=== PATIENT | female | born 1935 | race Caucasian/White ===

== ENCOUNTER 2019-11-11 11:39 | Outpatient (RCR) | payer SELFPAY | END 2019-12-04 23:59 | disposition home or self-care (01) | LOC: CR 11:39 | PROVIDERS: Family Provider Family Medicine; PCP Family Medicine; Referring Provider Internal Medicine Cardiovascular Disease; Visit Provider Internal Medicine Cardiovascular Disease | DX: Z95.5 Presence of coronary angioplasty implant and graft (principal) ==

== ENCOUNTER 2019-11-11 13:30 | Outpatient (CLI) | payer MEDICARE, OTHER, SELFPAY ==
[2019-11-11 14:20] LABS: ABG PCO2 50.5 mmHg (35-45); ABG PH Result 7.43 (7.35-7.45); Arterial Blood Gas Hematocrit 49.2 % (37-47); Base Excess ABG 7.2 mmol/L (-2.0-2.0); Blood Gas Allen Test Pos; Blood Gas Sample Site Radial, right; Blood Gas Sample Type Arterial; Carboxyhemoglobin 0.6 %THgb (0.4-20.1); HCO3 ABG 33.3 mmol/L (22-26); HGB O2 Sat 92.9 % (95-100); Ionized Calcium Level - ABG 1.2 mmol/L (1.1-1.4); Methemoglobin 0.2 % (0.4-1.5); PO2 ABG 71.9 mmHg (80.0-100.0); Potassium Level - ABG 4.1 mmol/L (3.5-5.0)
[2019-11-11 14:26] LABS: Oxygen Device NC; Oxygen Saturation ABG 93.7
[2019-11-11 15:02] VITALS: O2SAT 88; O2SAT 92
== END 2019-11-11 13:31 | disposition home or self-care (01) ==
LOC: RAD 05-23 15:30
PROVIDERS: PCP Family Medicine; Visit Provider Internal Medicine Critical Care Medicine
DX: J96.92 Respiratory failure, unspecified with hypercapnia (principal)
CPT/HCPCS: 80051; 82810; 83986; 94060; 94726; 94729; J7611

== ENCOUNTER 2019-11-18 15:23 | Outpatient (CLI) | payer MEDICARE, OTHER, SELFPAY ==
--- NOTE | 2019-11-18 15:53 | CT_ITS ---
WS: [id number] CT CHEST TECHNIQUE: Noncontrast CT of the chest with coronal and sagittal reformatted images. CLINICAL INFORMATION: SHORTNESS OF BREATH COMPARISON: None. DLP: 996.[address] scans at [facility] use at least one of these dose optimization techniques: automat ed exposure control; mA and/or kV adjustment per patient size (includes targeted exams where dose is matched to clinical indication); or iterative reconstruction. FINDINGS: Moderate chronic emphysematous changes. No acute pulmonary infiltrates. No consolidation or pleural f luid. Noncalcified pulmonary nodule in the right upper lobe measuring 5.4 mm. Noncalcified pulmonary nodule in the right lower lobe posterior medially measuring 2 mm. A few additional tiny 1 to 2 mm pul monary nodules in the right upper lobe along the fissure and subpleural right lower lobe. Atelectasis in both lung bases. Additional noncalcified opacity in the left upper lobe abutting the mediastinum may be vascular measu ring 6 mm. Slightly enlarged heterogeneous thyroid. Moderate thoracic kyphosis. Anterior hypertrophic changes thoracic spine. Thyroid nodule measuring 8 mm. Cardiomegaly. Coronary calcification. No medi astinal or hilar lymphadenopathy. Dense mitral valve calcification. Prior cholecystectomy. CT/CT chest wo con [id number] IMPRESSION: 1. Noncalcified pulmonary nodule in the right upper lobe measuring 5.4 mm. Rec ommend 6 month follow-up. 2. A few additional tiny 1 to 2 mm intraparenchymal and subpleural nodules in the right lower lobe and right upper lobe near the fissure. 3. No acute pulmonary infiltrates. Bibasilar atelectasis. 4. 6 mm opacity in the left upper lobe adjacent to the mediastinum and brachio cephalic vein may be vascular. 5. No mediastinal or hilar lymphadenopathy. 6. Cardiomegaly with dense vascular calcification. 7. Prominent heterogeneous thyroid with a few small nodules. This can be follo wed up with ultrasound on an elective basis. 8. Prior cholecystectomy.
== END 2019-11-18 15:24 | disposition home or self-care (01) ==
LOC: RADWPI 15:29
PROVIDERS: Family Provider Family Medicine; PCP Family Medicine; Visit Provider Internal Medicine Critical Care Medicine
DX: J98.11 Atelectasis (principal); R06.02 Shortness of breath; R91.8 Other nonspecific abnormal finding of lung field; I51.7 Cardiomegaly; E04.2 Nontoxic multinodular goiter; Z90.49 Acquired absence of other specified parts of digestive tract
CPT/HCPCS: 71250

== ENCOUNTER 2019-12-07 13:43 | Outpatient (RCR) | payer SELFPAY | END 2020-01-02 23:59 | disposition home or self-care (01) | LOC: CR 13:43 | PROVIDERS: Family Provider Family Medicine; PCP Family Medicine; Referring Provider Internal Medicine Cardiovascular Disease; Visit Provider Internal Medicine Cardiovascular Disease | DX: Z95.5 Presence of coronary angioplasty implant and graft (principal) ==

== ENCOUNTER 2020-01-04 12:49 | Outpatient (RCR) | payer SELFPAY | END 2020-02-02 23:59 | disposition home or self-care (01) | LOC: CR 12:49 | PROVIDERS: Family Provider Family Medicine; PCP Family Medicine; Referring Provider Internal Medicine Cardiovascular Disease; Visit Provider Internal Medicine Cardiovascular Disease | DX: Z95.2 Presence of prosthetic heart valve (principal) ==

== ENCOUNTER 2020-04-04 14:21 | Outpatient (RCR) | payer SELFPAY | END 2020-05-03 23:59 | disposition home or self-care (01) | LOC: CR 14:21 | PROVIDERS: Family Provider Family Medicine; PCP Family Medicine; Referring Provider Internal Medicine Cardiovascular Disease; Visit Provider Internal Medicine Cardiovascular Disease | DX: Z95.5 Presence of coronary angioplasty implant and graft (principal) ==

== ENCOUNTER 2020-05-11 14:09 | Outpatient (CLI) | payer MEDICARE, OTHER, SELFPAY ==
--- NOTE | 2020-05-11 14:15 | USCV_ITS ---
Josr Mansi Age: 85 Gender: F : 1935 Exam Date: 05/11/2020 14:30 Ordering Phys: Anselmo Ramirez MD ([email or web address]) Technologist: Catarina Denson Exam Location: [facility] [place] Indication: HISTORY: Patient has history of varicose veins. PROCEDURES: Bilateral duplex Venous Insufficiency study of the Deep and Superficial systems was carried out according to normal protocol with the patient in supine positon for deep system and dependent position for the superficial system. FINDINGS: There is no evidence of bilateral deep vein thrombosis. No evidence of superficial thrombosis in the bilateral saphenous system. No evidence of reflux was noted in the bilateral deep venous system. No venous reflux noted in the bilateral greater saphenous vein. No venous reflux noted in the bilateral small saphenous vein. CONCLUSIONS No evidence of DVT in the above-mentioned identifiable veins. No significant venous reflux in the above-mentioned veins The venous diameter and the depth from the surface are as mentioned above Dr Justin Mccarthy MD [facility] (Electronically Signed) Final Date: 11 May 2020 18:27 S
--- NOTE | 2020-05-11 15:00 | USCV_ITS ---
Mansi Ovalles Age: 85 Gender: F : 1935 Exam Date: 05/11/2020 14:16 Ordering Phys: Anselmo Ramirez MD ([email or web address]) Technologist: Catarina Denson Exam Location: [facility] [place] Indication: sob BP: / HR: 74 Rhythm: Sinus Technical Quality: Adequate MEASUREMENTS (Male / Female) Normal Values 2D ECHO LV Diastolic Diameter PLAX 4.4 cm 4.2 - 5.9 / 3.9 - 5.3 cm LV Systolic Diameter PLAX 3.4 cm LV Chamber Size 3.0 cm IVS Diastolic Thickness 1.2 cm 0.6 - 1.0 / 0.6 - 0.9 cm IVS Systolic Thickness 1.8 cm LVPW Diastolic Thickness 2.0 cm 0.6 - 1.0 / 0.6 - 0.9 cm LVPW Systolic Thickness 2.5 cm RV Chamber Size 4.3 cm LVOT Diameter 2.0 cm LV Ejection Fraction 2D Teich 48.3 % LA Diameter 5.0 cm LA Width 4.7 cm LA Height 4.9 cm RA Width 3.1 cm RA Height 3.9 cm Aorta at Sinotubular Diameter 3.4 cm M-MODE LV Diastolic Diameter MM 5.6 cm 4.2 - 5.9 / 3.9 - 5.3 cm LV Systolic Diameter MM 3.3 cm LV Ejection Fraction MM Teich 72.1 % IVS Diastolic Thickness MM 1.1 cm 0.6 - 1.0 / 0.6 - 0.9 cm IVS Systolic Thickness MM 1.7 cm LVPW Diastolic Thickness MM 1.4 cm 0.6 - 1.0 / 0.6 - 0.9 cm LVPW Systolic Thickness MM 1.7 cm Aortic Annulus Diameter 3.4 cm LA Ao Ratio MM 1.5 MV E Point Septal Separation 1.8 cm DOPPLER AV Peak Velocity 241.0 cm/s LVOT Peak Velocity 120.0 cm/s AV Area Cont Eq vti 1.4 cm squared AV Area Cont Eq pk 1.6 cm squared MV Area PHT 3.7 cm squared Mitral E to A Ratio 8.3 MV E' Velocity 10.0 cm/s Mitral E to MV E' Ratio 14.6 Mitral E to LV E' Lateral Ratio 14.8 Mitral E to LV E' Septal Ratio 14.4 TR Peak Velocity 292.0 cm/s TR Peak Gradient 34.1 mmHg TR Mean Velocity 232.3 cm/s TR Mean Gradient 23.2 mmHg TR Velocity Time Integral 97.7 cm TV Peak E Velocity 69.0 cm/s Right Atrial Pressure 3.0 mmHg Pulmonary Artery Systolic Pressu 37.1 mmHg PV Peak Velocity 89.0 cm/s RV Acceleration Time 0.1 s RV Ejection Time 0.3 s RV AcT/ET 0.3 FINDINGS Left Ventricle Normal left ventricular cavity size. Normal left ventricular systolic function. Abnormal septal motion consistent with conduction abnormality. Left ventricular ejection fraction is estimated at 55 %. In the presence of atrial fibrillation diastolic function cannot be assessed accurately. Right Ventricle Normal right ventricular size. Moderate pulmonary hypertension, RVSP 37.1 mmHg. Right Atrium The right atrium is normal in size. Left Atrium The left atrium is normal in size. Mitral Valve Severely thickened mitral valve. Severe mitral annular calcification. Mild-moderate mitral valve regurgitation. Aortic Valve Mild aortic valve calcification. Moderate aortic valve stenosis, mean gradient 12.5 mmHg, JENNY 1.4 cm squared. No aortic valve regurgitation. Tricuspid Valve No tricuspid valve regurgitation. Pulmonic Valve Structurally normal pulmonic valve without significant stenosis. There is no pulmonic regurgitation. Pericardium Normal pericardium without effusion. Aorta Normal ascending aorta dimension. CONCLUSIONS 1-Normal left ventricular cavity size. Normal left ventricular systolic function. Abnormal septal motion consistent with conduction abnormality. Left ventricular ejection fraction is estimated at 55 %. In the presence of atrial fibrillation diastolic function cannot be assessed accurately. 2-Severely thickened mitral valve. Severe mitral annular calcification. Mild-moderate mitral valve regurgitation. 3-Mild aortic valve calcification. Moderate aortic valve stenosis, mean gradient 12.5 mmHg, JENNY 1.4 cm squared. No aortic valve regurgitation. 4-Normal right ventricular size. Moderate pulmonary hypertension, RVSP 37.1 mmHg. 5-There is no pericardial effusion. 6-Right atrial pressure is around 5 mm of mercury. 7-When compared to the prior echocardiogram dated 02/24/2019 there appeared to be mild aortic stenosis now otherwise no interval change Anselmo Ramirez MD (Electronically Signed) Final Date: 12 May 2020 17:14 S
== END 2020-05-11 14:10 | disposition home or self-care (01) ==
LOC: RAD 14:12
PROVIDERS: PCP Family Medicine; Visit Provider Internal Medicine Cardiovascular Disease
DX: R06.02 Shortness of breath (principal); I08.0 Rheumatic disorders of both mitral and aortic valves; I83.892 Varicose veins of left lower extremity with other complications; I27.20 Pulmonary hypertension, unspecified
CPT/HCPCS: 93306; 93970

== ENCOUNTER 2020-05-16 | Outpatient (RCR) | payer SELFPAY | END 2020-05-16 23:00 | disposition home or self-care (01) | LOC: CR | PROVIDERS: Family Provider Family Medicine; PCP Family Medicine; Referring Provider Internal Medicine Cardiovascular Disease; Visit Provider Internal Medicine Cardiovascular Disease | DX: Z95.5 Presence of coronary angioplasty implant and graft (principal) ==

== ENCOUNTER 2020-06-07 13:49 | Outpatient (RCR) | payer SELFPAY | END 2020-07-04 23:59 | disposition home or self-care (01) | LOC: CR 13:49 | PROVIDERS: Family Provider Family Medicine; PCP Family Medicine; Referring Provider Internal Medicine Cardiovascular Disease; Visit Provider Internal Medicine Cardiovascular Disease | DX: Z95.5 Presence of coronary angioplasty implant and graft (principal) ==

== ENCOUNTER 2020-07-05 14:40 | Outpatient (RCR) | payer SELFPAY | END 2020-08-03 23:59 | disposition home or self-care (01) | LOC: CR 14:40 | PROVIDERS: Family Provider Family Medicine; PCP Family Medicine; Referring Provider Internal Medicine Cardiovascular Disease; Visit Provider Internal Medicine Cardiovascular Disease | DX: Z95.5 Presence of coronary angioplasty implant and graft (principal) ==

== ENCOUNTER → 2020-08-01 11:00 | Outpatient (BNVA) | payer MEDICARE, OTHER, SELFPAY | PROVIDERS: Family Provider Family Medicine; PCP Family Medicine; Referring Provider Dermatology; Visit Provider Dermatology | DX: Z85.828 Personal history of other malignant neoplasm of skin (principal); D48.5 Neoplasm of uncertain behavior of skin; L57.0 Actinic keratosis; L82.1 Other seborrheic keratosis | CPT/HCPCS: 11102; 11103; 17004; 88304; 99203; 99204 ==

== ENCOUNTER → 2020-08-31 15:16 | Outpatient (BNVA) | payer MEDICARE, OTHER, SELFPAY | PROVIDERS: Family Provider Family Medicine; PCP Family Medicine; Visit Provider Dermatology | DX: D48.9 Neoplasm of uncertain behavior, unspecified (principal) | CPT/HCPCS: 88304 ==

== ENCOUNTER 2021-12-13 12:15 | Outpatient (CLI) | payer MEDICARE, OTHER, SELFPAY ==
--- NOTE | 2021-12-13 12:45 | USCV_ITS ---
Mansi Ovalles Age: 86 Gender: F : 1935 Exam Date: 12/13/2021 12:08 Ordering Phys: Anselmo Ramirez MD ([email or web address]) Technologist: Eddi Chaves RVSusie Exam Location: [place] Indication: pre-op clearance for RT first toe ingrown nail surgery. No DM. Never smoked. FINDINGS Normal resting ABIs bilaterally Normal resting TBI bilaterally PVR waveforms showing blunting of the dicrotic notch CONCLUSIONS Some features of arterial sclerosis, bilaterally No significant arterial obstruction, based on the above findings Dr Justin Mccarthy MD [facility] (Electronically Signed) Final Date: 25 December 2021 14:33 S
== END 2021-12-13 12:16 | disposition home or self-care (01) ==
LOC: RAD 12:21
PROVIDERS: PCP Family Medicine; Visit Provider Internal Medicine Cardiovascular Disease
DX: L60.0 Ingrowing nail (principal); I83.819 Varicose veins of unspecified lower extremity with pain
CPT/HCPCS: 93923

== ENCOUNTER → 2022-01-15 14:47 | Outpatient (BNVA) | payer MEDICARE, OTHER, SELFPAY | PROVIDERS: PCP Family Medicine; Visit Provider Internal Medicine Critical Care Medicine | DX: J96.12 Chronic respiratory failure with hypercapnia (principal); E66.2 Morbid (severe) obesity with alveolar hypoventilation; J98.4 Other disorders of lung; I10 Essential (primary) hypertension; K21.9 Gastro-esophageal reflux disease without esophagitis; J96.92 Respiratory failure, unspecified with hypercapnia | CPT/HCPCS: 99213 ==

== ENCOUNTER → 2022-03-26 13:01 | Outpatient (BNVA) | payer MEDICARE, OTHER, SELFPAY | PROVIDERS: PCP Family Medicine; Visit Provider Internal Medicine | DX: I11.0 Hypertensive heart disease with heart failure (principal); I50.30 Unspecified diastolic (congestive) heart failure; I25.10 Atherosclerotic heart disease of native coronary artery without angina pectoris; I48.91 Unspecified atrial fibrillation; I35.0 Nonrheumatic aortic (valve) stenosis | CPT/HCPCS: 99214 ==

== ENCOUNTER 2022-06-06 14:22 | Inpatient (IN) | payer MEDICARE, OTHER, SELFPAY ==
[2022-06-06 14:36] VITALS: BP 136/82; PULSE 108; RESP 18; TEMP 36.5; O2SAT 93; BMI 39.4
--- NOTE | 2022-06-06 14:51 | CTR_ITS ---
PROCEDURE INFORMATION: Exam: CT Head Without Contrast Exam date and time: 06/06/2022 4:26 PM Age: 87 years old Clinical indication: Visual disturbance; Additional info: Paresthesia TECHNIQUE: Imaging protocol: Computed tomography of the head without contrast. Radiation optimization: All CT scans at this facility use at least one of these dose optimization techniques: automated exposure control; mA and/or kV adjustment per patient size (includes targeted exams where dose is matched to clinical indication); or iterative reconstruction. COMPARISON: No relevant prior studies available. RADIATION DOSE METRICS: Total DLP (mGy-cm): 1123.58 FINDINGS: Brain: No hemorrhage. No edema. Moderate diffuse cerebral atrophy and mild sequela of chronic small vessel ischemic disease. No mass effect. Cerebral ventricles: No ventriculomegaly. Paranasal sinuses: Visualized sinuses are unremarkable. No fluid levels. Mastoid air cells: Visualized mastoid air cells are well aerated. Bones/joints: Unremarkable. No acute fracture. Soft tissues: Unremarkable. CT/CT head wo con* [id number] IMPRESSION: No acute intracranial abnormality.
--- NOTE | 2022-06-06 15:30 | ECG_ITS ---
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 Measurements Intervals [place] Rate: 100 P: [place]: QRS: -14 QRSD: 88 T: 5 QT: 372 QTc: 482 Interpretive Statements ATRIAL FIBRILLATION WITH RAPID VENTRICULAR RESPONSE LOW QRS VOLTAGE IN PRECORDIAL LEADS [QRS DEFLECTION < 1.0 mV IN CHEST LEADS] SEPTAL MYOCARDIAL INFARCTION , PROBABLY OLD [40+ ms Q WAVE IN V1/V2] Compared to ECG 02/28/2018 13:21:35 Ventricular premature complex(es) no longer present Myocardial infarct finding still present Electronically Signed On 06-06-2022 19:32:05 CDT by Lindsay Garcia M.D. [id number]
[2022-06-06 15:34] LABS: Basophils % 0.6 %; Eosinophils # 0.1 10^3/uL (0.0-0.8); Eosinophils % 1.9 %; Hematocrit 51.8 % (37.0-47.0); Hemoglobin 16.8 g/dL (11.5-15.3); Lymphocytes # 1.5 10^3/uL (0.8-4.8); Lymphocytes % 23.6 %; Mean Corpuscular HGB Conc 32.4 g/dL (30.0-36.0); Mean Corpuscular Hemoglobin 28.6 pg (28.0-34.0); Mean Corpuscular Volume 88.1 fl (81-99); Mean Platelet Volume 10.3 fL (7.4-10.4); Monocytes # 0.7 10^3/uL (0.2-0.9); Monocytes % 10.6 %; Neutrophils # 3.98 10^3/uL (1.8-7.7); Neutrophils % 62.7 %; Nucleated Red Blood Cells % 0 %; Platelet Count 187 10^3/cmm (130-400); Red Blood Count 5.88 10^6/uL (4.1-5.3); Red Cell Distribution Width 14.5 % (12.1-15.1); White Blood Count 6.4 10^3/uL (4.0-10.0)
[2022-06-06 15:50] LABS: Alanine Aminotransferase 18 U/L (0-33); Albumin Level 4.2 g/dL (3.5-5.2); Alkaline Phosphatase 105 IU/L (35-105); Anion Gap 13.8 (5-19); Aspartate Amino Transferase 24 U/L (0-32); Blood Urea Nitrogen 20 mg/dL (8-23); Calcium 9.6 mg/dL (8.5-10.5); Carbon Dioxide 33 mmol/L (22-29); Chloride 99 mmol/L (98-107); Globulin 2.8 g/dL (1.3-4.6); Glucose 103 mg/dL (65-115); Lipase 33 U/L (13-60); Osmolality Calculated 295 mOsm/kg (285-295); Potassium 4.8 mmol/L (3.5-5.1); Sodium 141 mmol/L (136-145); Total Bilirubin 0.5 mg/dL (0.15-1.2)
--- NOTE | 2022-06-06 16:01 | ED_ITS ---
HPI - General Adult General: Chief complaint: ER Hold Stated complaint: Weakness, vision loss in one eye Time Seen by Provider: 06/06/22 16:01 History of Present Illness: Ms. Ovalles is an 87-year-old lady with history of atrial fibrillation on reduced dose Eliquis, CAD, diastolic heart failure, restrictive lung disease who presents to the emergency department for concern over neurologic symptoms. She reports being at her baseline health earlier today and she had sudden onset approximately noon of a brown blob visual disturbance in her central sidhu of 1 eye. With this she had a tingling sensation in her right arm and discomfort in her shoulder. This lasted approximately 1 hour and has subsequently resolved with exception of still mild paresthesia and a feeling of impending doom. She reports history of 1 episode similar approximately 2 weeks ago however this was not as intense. Currently symptoms are mild. Denies other neurologic complaints. Denies frequent history of chest pain. No other specific changes in health, exacerbating, or alleviating factors identified. Location: right and upper extremity Severity: moderate Quality: other Relieving factors: none Exacerbating factors: none Associated symptoms: Reports other Review of Systems General: Reports: 10 or more systems reviewed and unremarkable except in HPI and below PFSH ED PFSH: Medical History (Updated 06/08/22 @ 00:02 by ) Acute non-ST elevation myocardial infarction (NSTEMI) Afib Aortic stenosis, mild Arm paresthesia, right ASHD (arteriosclerotic heart disease) Atrial fibrillation Cellulitis Chronic hypercapnic respiratory failure COPD (chronic obstructive pulmonary disease) Diastolic heart failure Well compensated continue medicine. Essential (primary) hypertension GERD (gastroesophageal reflux disease) History of nonmelanoma skin cancer Mild tricuspid valve regurgitation NSTEMI (non-ST elevated myocardial infarction) Obesity hypoventilation syndrome Positive cardiac stress test Respiratory failure with hypercapnia Respiratory failure with hypoxia Restrictive lung disease SOB (shortness of breath) TIA (transient ischemic attack) Transient vision disturbance Varicose veins of leg with pain Venous (peripheral) insufficiency Surgical History H/O hernia repair History of appendectomy History of cholecystectomy History of PTCA Stented coronary artery Family History Other Cancer Diabetes Social History Smoking and tobacco status: never smoked Second hand smoke exposure: No Smoking risk assessment/counseling performed?: No Alcohol intake: never Lives independently: Yes Household members: none Marital status: / Current occupational status: retired History of recent travel: No Current gender identity: Female Physical Exam Const: COMMON NORMALS: patient oriented x3 and alert GENERAL APPEARANCE: cooperative and well developed HENMT: COMMON NORMALS: normocephalic and atraumatic HEAD & SCALP: normocephalic and atraumatic THROAT: posterior oropharynx normal Eye: COMMON NORMALS: conjunctivae normal CONJUNCTIVA: Yes conjunctivae normal SCLERA: sclerae normal Neck/C-Spine: COMMON NORMALS: supple GENERAL: Yes trachea midline Resp: COMMON NORMALS: normal respiratory effort and clear to auscultation bilaterally EFFORT & INSPECTION: Yes able to speak in complete sentences AUSCULTATION: clear to auscultation bilaterally Cardio: COMMON NORMALS: regular rate and regular rhythm RATE: regular rate RHYTHM: regular rhythm GI: COMMON NORMALS: Soft to palpation PALPATION: Yes Soft to palpation and No Tenderness to palpation present (GI) PERCUSSION: normal to percussion Extremity: GENERAL: Yes normal exam except as noted and No edema Neuro: COMMON NORMALS: patient oriented x3, CN's II-XII intact bilaterally, moves all extremities, no focal motor deficits and no sensory deficits noted SENSORIUM/ORIENTATION: Yes alert and No Orientation impaired Psych: COMMON NORMALS: mental status grossly normal and Normal thought process present THOUGHT PROCESS: Normal thought process present Course ED course: - Patient was seen and evaluated by me at bedside - Patient placed on cardiac monitors, IV access obtained - Initial evaluation notable for exam as above, no focal neurodeficits. - Labs and xrays personally interpreted by me -Fluids given, aspirin given for elevated troponin at 2 hours - Labs notable for no acute laboratory abnormality to explain symptoms. Positive delta troponin. BNP elevated. - Imaging notable for no acute intracranial hemorrhage or mass. Chest x-ray without lobar consolidation or pneumothorax. - Upon serial reexamination after treatment the patient was somewhat - Based on patient history, evaluation, and testing as interpreted the most likely cause of the patient's condition is strokelike symptoms - The results of ED evaluation were discussed with the patient including plan for admission due to requirement for level of care not available if discharged to prevent significant worsening/deterioration. - Admitting service was contacted and Dr Bonds with the hospitalist service ting jordan to admit the patient - Patient was admitted without further deterioration or significant events. Note: Click bubbles or prepopulated sidhu in note writing are used for assistance with data collection and billing and are inherently more limited than narrative and other text portions of this note. Please use narrative for additional clinical history and defer to narrative/free test for any case of contradictory information. If information appears in only free text or click bubble it s hould be considered present or absent as reported. Please contact note proposal writer for clarifications of clinical information or contradictory information. MDM is a brief summary, contradictory or erroneous seeming information should be clarified and full note should be reviewed. Vital Signs: Vital signs: Vital Signs Temperature 98.2 F 06/07/22 12:00 Pulse Rate 69 06/07/22 12:00 Respiratory Rate 20 H 06/07/22 12:00 Blood Pressure 105/65 06/07/22 12:00 Pulse Oximetry 96 06/07/22 12:00 Oxygen Delivery Me thod 06/07/22 12:00 Oxygen Flow Rate 2 06/07/22 01:35 MDM - General Adult Medical Decision Making 87-year-old lady presenting with TIA/strokelike symptoms. No focal deficits on exam. Patient found to have positive delta troponin and admitted for further management. Medical Records I reviewed the patient's medical records. Lab Data I reviewed the patient's lab results. : 06/07/22 05:22 06/07/22 05:[address] 06/06/22 14:51 IMPRESSION: No acute intracranial abnormality. Chest X-Ray 06/06/22 16:37 IMPRESSION: Cardiomegaly with central pulmonary vascular congestion. Laboratory Results WBC 6.4 10^3/uL (4.0-10.0) 06/06/22 14:16 RBC 5.88 10^6/uL (4.1-5.3) H 06/06/22 14:16 Hgb 16.8 g/dL (11.5-15.3) H 06/06/22 14:16 Hct 51.8 % (37.0-47.0) H 06/06/22 14:16 MCV 88.1 fl (81-99) 06/06/22 14:16 MCH 28.6 pg (28.0-34.0) 06/06/22 14:16 MCHC 32.4 g/dL (30.0-36.0) 06/06/22 14:16 RDW 14.5 % (12.1-15.1) 06/06/22 14:16 Plt Count 187 10^3/cmm (130-400) 06/06/22 14:16 MPV 10.3 fL (7.4-10.4) 06/06/22 14:16 Neut % (Auto) 62.7 % 06/06/22 14:16 Lymph % (Auto) 23.6 % 06/06/22 14:16 [place] % (Auto) 10.6 % 06/06/22 14:16 Eos % (Auto) 1.9 % 06/06/22 14:16 Baso % (Auto) 0.6 % 06/06/22 14:16 Neut # (Auto) 3.98 10^3/uL (1.8-7.7) 06/06/22 14:16 Lymph # (Auto) 1.5 10^3/uL (0.8-4.8) 06/06/22 14:16 [place] # (Auto) 0.7 10^3/uL (0.2-0.9) 06/06/22 14:16 Eos # (Auto) 0.1 10^3/uL (0.0-0.8) 06/06/22 14:16 Baso # (Auto) 0.0 10^3/uL (0.0-0.1) 06/06/22 14:16 Nucleated RBC % (auto) 0 % 06/06/22 14:16 Nucleated RBCs # 0.0 /100WBC 06/06/22 14:16 Sodium 141 mmol/L (136-145) 06/06/22 14:16 Potassium 4.8 mmol/L (3.5-5.1) 06/06/22 14:16 Chloride 99 mmol/L (98-107) 06/06/22 14:16 Carbon Dioxide 33 mmol/L (22-29) H 06/06/22 14:16 Anion Gap 13.8 (5-19) 06/06/22 14:16 BUN 20 mg/dL (8-23) 06/06/22 14:16 Creatinine 0.9 mg/dL (0.5-0.9) 06/06/22 14:16 GFR Calculation Not Reportable 06/06/22 14:16 Glucose 103 mg/dL (65-115) 06/06/22 14:16 Calculated Osmolality 295 mOsm/kg (285-295) 06/06/22 14:16 Calcium 9.6 mg/dL (8.5-10.5) 06/06/22 14:16 Magnesium 2.0 mg/dL (1.7-2.3) 06/06/22 14:16 Total Bilirubin 0.5 mg/dL (0.15-1.2) 06/06/22 14:16 AST 24 U/L (0-32) 06/06/22 14:16 ALT 18 U/L (0-33) 06/06/22 14:16 Alkaline Phosphatase 105 IU/L (35-105) 06/06/22 14:16 Troponin T Baseline 160 ng/L (0-10) H* 06/06/22 14:16 Troponin T 120 Minute 173.5 ng/L (0-10) H 06/06/22 16:38 Delta Troponin T 13.5 ABS# (0-10) H* 06/06/22 16:38 NT-Pro-B Natriuret Pep 1375 pg/mL (0-450) H 06/06/22 14:16 Total Protein 7.0 g/dL (6.6-8.7) 06/06/22 14:16 Albumin 4.2 g/dL (3.5-5.2) 06/06/22 14:16 Globulin 2.8 g/dL (1.3-4.6) 06/06/22 14:16 Lipase 33 U/L (13-60) 06/06/22 14:16 Critical Care Time Critical Care Time: Critical Care Time: Yes Total Critical Care Time: 35 Attestation: The high probability of a clinically significant, sudden or life threatening deterioration of the patient's neuro/cardiovascular system(s) required my full and direct attention, intervention and personal management. The critical care time is as shown. This time is in addition to time spent performing any reported procedures but includes the following: [x] Data and vital sign review and interpretation [x] Patient assessment, examination and intervention [x] Documentation [x] Medication orders and management Discharge Plan Discharge Patient Disposition: Admitted As Inpatient Admit Provider: Tl Bonds Clinical Impression: Acute non-ST elevation myocardial infarction (NSTEMI), Arm paresthesia, right, Transient vision disturbance Condition: Stable Discharge Diet: Cardiac Coding Level of Care Code ED Resolution Expert for Chg Fwd Exam Comprehensive
[2022-06-06 16:13] LABS: Troponin(5th) Baseline 160 ng/L (0-10)
--- NOTE | 2022-06-06 16:37 | XRR_ITS ---
PROCEDURE INFORMATION: Exam: XR Chest Exam date and time: 06/06/2022 4:53 PM Age: 87 years old Clinical indication: Angina; Additional info: Arm paresthesias, elevated troponin, atypical chest pain TECHNIQUE: Imaging protocol: Radiologic exam of the chest. Views: 1 view. COMPARISON: CT chest con [id number] 11/18/2019 4:03 PM FINDINGS: Lungs: No consolidation. Pleural spaces: No pleural effusion. No pneumothorax. Heart/Mediastinum: Cardiomegaly with central pulmonary vascular congestion. Bones/joints: Visualized osseous structures are intact. XR/XR chest 1V portable [id number] IMPRESSION: Cardiomegaly with central pulmonary vascular congestion.
--- NOTE | 2022-06-06 16:52 | ECG_ITS ---
[facility] Test Date: 2022-06-06 Pat Name: Mansi Ovalles Department: Room: Gender: Female Clinical Administrator: : 1935 Requested By: Kiko Granados Order Number: [id number] Jovanni MD: Lindsay Garcia M.D. Measurements Intervals [place] Rate: 96 P: [place]: QRS: 202 QRSD: 80 T: 189 QT: 334 QTc: 422 Interpretive Statements ATRIAL FIBRILLATION POSSIBLE RIGHT VENTRICULAR HYPERTROPHY [SOME/ALL OF: PROMINENT R IN V1, LATE TRANSITION, RAD, [place], SSS] ANTEROLATERAL MYOCARDIAL INFARCTION , OF INDETERMINATE AGE [40+ ms Q WAVE IN I/aVL/V3-V6] Compared to ECG 06/06/2022 15:30:02 No significant changes Electronically Signed On 06-06-2022 19:44:07 CDT by Lindsay Garcia M.D. [id number]
[2022-06-06 16:58] VITALS: BP 112/86; PULSE 99; RESP 18; O2SAT 91
[2022-06-06] MEDS: sodium chloride 0.9% 1,000 ML 999 ML IV (17:05)
[2022-06-06 17:18] LABS: Troponin 5 2HR 173.5 ng/L (0-10)
[2022-06-06 17:19] LABS: Troponin 5 2HR Delta 13.5 ABS# (0-10)
[2022-06-06 17:45] LABS: NT Pro B Type Natriuretic Pept 1375 pg/mL (0-450)
[2022-06-06] MEDS: aspirin 81 mg Chew Tablet 324 MG PO (17:53)
[2022-06-06 17:55] VITALS: BP 142/75; PULSE 107; RESP 20; O2SAT 91
--- NOTE | 2022-06-06 19:16 | PM.HP ---
Providers/Chief Complaint Primary Care Provider: Chung Curry MD Chief Complaint: Weakness, vision loss in one eye History of Present Illness Mansi Ovalles is a 87 year old female with PMH of CAD, S/P PCI, A.fib , on Eliquis , HTN , Mild to mod MR, Mild , HFpEF , Varicose veins of leg,chronic hypercapnic R/F , OHS , came in with c/o Acute onset of blurred vision in rt eye which lasted transiently was accompanied by tingling sensation in the rt hand and rt shoulder discomfort, she denied any chest pain, palpitation, dizziness,headache,lightheadedness,weakness in any body part,nausea, vomiting. She reports a similar episode 2 weeks back which lasted transiently.When I interacted with the patient she denied had no neurological deficit. Upon arrival in the ER she was worked up for above mention complain. Pertinent Imaging studies: C.T Head without contrast : No acute Intracranial findings EKG: A.fib Pertinent Labs : WBC : 6.4 , H& H : 16/51 , PLT : 187 ,Na: 141, K: 4.8 BUN/SCR : 20/0.9 HCO3: 33, Troponin: 160-173 , Pro BNP: 1375 Review of Systems General: Reports: 10 or more systems reviewed and unremarkable except in HPI and below Card: Denies: palpitations, edema, swelling of feet/ankles, dyspnea on exertion, orthopnea or leg pain with exertion Resp: Denies: dyspnea, productive cough, wheezing or pain on inspiration GI: Denies: abdominal pain, nausea, vomiting, diarrhea or constipation : Denies: flank pain Musc: Denies: back pain, extremity pain or extremity swelling Neuro: Denies: headache(s), difficulty walking or confusion Medications/Allergies Home Medications Medication Instructions Recorded Confirmed Last Taken Type cholecalciferol (vitamin D3) 10 400 unit PO DAILY 10/10/20 03/26/22 Unknown History mcg (400 unit) capsule citalopram 10 mg tablet 10 mg PO DAILY 10/10/20 03/26/22 Unknown History garlic 1,000 mg capsule 1,000 mg PO DAILY 10/10/20 03/26/22 Unknown History krill wvn-woixm-3-dha-epa 300 1 cap PO DAILY 10/10/20 03/26/22 Unknown History mg-90 mg (27 mg-45 mg) capsule magnesium oxide 500 mg capsule 500 mg PO DAILY 10/10/20 03/26/22 Unknown History red yeast rice 600 mg capsule 600 mg PO DAILY 10/10/20 03/26/22 Unknown History zinc 50 mg tablet 50 mg PO DAILY 10/10/20 03/26/22 Unknown History apixaban 2.5 mg tablet (Eliquis) 2.5 mg PO BID #180 tabs 01/31/21 01/15/22 Unknown Rx fluticasone propionate 50 1 spray intranasal DAILY 05/09/21 03/26/22 Unknown History mcg/actuation nasal spray,suspension (Flonase Allergy Relief) metoprolol succinate 25 mg 12.5 mg PO .at bedtime #45 tabs 05/09/21 03/26/22 Unknown Rx tablet,extended release 24 hr potassium chloride 20 mEq 40 meq PO DAILY #180 tabs 08/28/21 03/26/22 Unknown Rx tablet,extended release furosemide 80 mg tablet See Rx Instructions .Route 09/19/21 03/26/22 Unknown Rx .COMPLEX #180 tabs diltiazem HCl 180 mg 180 mg PO QAM #90 caps 12/04/21 03/26/22 Unknown Rx capsule,extended release 24 hr pantoprazole 40 mg tablet,delayed 40 mg PO DAILY #90 tabs 03/26/22 03/26/22 Unknown Rx release (Protonix) Allergies Allergy/AdvReac Type Severity Reaction Status Date / Time Penicillins Allergy Unknown Verified 03/26/22 13:11 PFSH Acute PFSH: Medical History (Updated 06/06/22 @ 19:20 by Tl Bonds MD) Afib Aortic stenosis, mild ASHD (arteriosclerotic heart disease) Cellulitis COPD (chronic obstructive pulmonary disease) Diastolic heart failure Well compensated continue medicine. Essential (primary) hypertension GERD (gastroesophageal reflux disease) History of nonmelanoma skin cancer Mild tricuspid valve regurgitation Positive cardiac stress test Respiratory failure with hypercapnia Respiratory failure with hypoxia SOB (shortness of breath) Varicose veins of leg with pain Venous (peripheral) insufficiency Surgical History H/O hernia repair History of appendectomy History of cholecystectomy History of PTCA Stented coronary artery Family History Other Cancer Diabetes Social History Smoking and tobacco status: never smoked Second hand smoke exposure: No Smoking risk assessment/counseling performed?: No Alcohol intake: never Lives independently: Yes Household members: none Marital status: / Current occupational status: retired History of recent travel: No Current gender identity: Female Vitals/I&O/Wt Last Vital Signs Temp 97.7 F 06/06/22 14:36 Pulse 107 H 06/06/22 17:55 Resp 20 H 06/06/22 17:55 BP 142/75 06/06/22 17:55 Pulse Ox 91 06/06/22 17:55 O2 Del Method 06/06/22 17:55 06/06/22 06/06/22 06/06/22 06:59 14:59 22:59 Intake Total 1000 / 1000 Balance 1000 / 1000 Weight last 48 hrs Weight 104.326 kg Physical Exam Const: COMMON NORMALS: patient oriented x3 HENMT: COMMON NORMALS: normocephalic and atraumatic HEAD & SCALP: normocephalic and atraumatic Chest: CHEST: Yes Symmetrical chest wall rise Resp: COMMON NORMALS: normal respiratory effort, No retractions and clear to auscultation bilaterally Cardio: COMMON NORMALS: Peripheral pulses 2+ throughout PERIPHERAL PULSES: Peripheral pulses 2+ throughout OTHER: Irregularly irregular rhythm, S1-S2 variable intensity, pansystolic murmur in mitral area, Ejection systolic murmur aortic area GI: COMMON NORMALS: Normal to inspection, nondistended, normoactive bowel sounds present, Soft to palpation, non-tender, No hepatosplenomegaly present and no masses AUSCULTATION: Yes normoactive bowel sounds PALPATION: Yes Soft to palpation and Yes No hepatosplenomegaly present RECTAL EXAM: deferred Neuro: COMMON NORMALS: patient oriented x3 Data : 06/06/22 14:16 06/06/22 14:16 A&P Assessment and plan (1) TIA (transient ischemic attack): Status: Acute (2) Diastolic heart failure: Status: Acute (3) Obesity hypoventilation syndrome: Status: Acute (4) Chronic hypercapnic respiratory failure: Status: Acute (5) Restrictive lung disease: Status: Acute (6) NSTEMI (non-ST elevated myocardial infarction): Status: Acute (7) Atrial fibrillation: Status: Acute (8) ASHD (arteriosclerotic heart disease): Status: Acute Plan 87 year old female with PMH of CAD, S/P stent , A.fib , on Eliquis , HTN , Mild to mod MR, Mild , HFpEF , Varicose veins of leg,chronic hypercapnic R/F , OHS , came in with c/o Acute onset of blurred vision in rt eye which lasted transiently was accompanied by tingling sensation in the rt hand and rt shoulder discomfort, she denied any chest pain, palpitation, dizziness,headache,lightheadedness,weakness in any body part,nausea, vomiting. She reports a similar episode 2 weeks back which lasted transiently.When I interacted with the patient she denied had no neurological deficit. Assessment : TIA NSTEMI likely type II patient deny any chest pain,or SOB on exertion ( angina equivalent ) HTN CAD S/P Stent Mild to mod MR Mild HFpEF Varicose veins of leg, Chronic hypercapnic R/F OHS Plan Follow 2D Echo Carotid Doppler Troponin trend Permissive HTN For next 24 hRS Aspirin , statin Will resume Eliquis on discharge Continue Diltiazem From Am Continue Lasix Use Trilogy ventilator at home for OHS Cardiology on Board Will consult Neurology in am Code Status : Full Code DVT PPX: ON SCD Attestations Medical Necessity Statement*: Patient needs to be in hospital for the management of TIA. Anticipated LOS Greater then 2 midnights. Time Spent in Patient Care: Greater than 35 minutes (>than 50% of time spent in counselling and/or direct pt care on unit). Coding Level of Care Code Acute [employer] [place] [employer] for [facility] Fwd Exam Detailed Diagnoses TIA (transient ischemic attack) G45.9 Diastolic heart failure I50.30 Obesity hypoventilation syndrome E66.2 Chronic hypercapnic respiratory failure J96.12 Restrictive lung disease J98.4 NSTEMI (non-ST elevated myocardial infarction) I21.4 Atrial fibrillation I48.91 ASHD (arteriosclerotic heart disease) I25.10
--- NOTE | 2022-06-06 19:22 | USCV_ITS ---
Josr Mansi Age: 87 Gender: F : 1935 Exam Date: 06/07/2022 00:08 Ordering Phys: Tl Bonds MD Technologist: LINDA Exam Location: [facility] [place] Indication: TIA today -- RIGHT hemiparesis with LEFT visual disturbances BP: 120 / 82 HR: 76 Rhythm: Atrial fibrillation Technical Quality: Suboptimal MEASUREMENTS (Male / Female) Normal Values 2D ECHO LV Diastolic Diameter PLAX 4.1 cm 4.2 - 5.9 / 3.9 - 5.3 cm LV Systolic Diameter PLAX 2.7 cm IVS Diastolic Thickness 1.6 cm 0.6 - 1.0 / 0.6 - 0.9 cm IVS Systolic Thickness 1.8 cm LVPW Diastolic Thickness 1.5 cm 0.6 - 1.0 / 0.6 - 0.9 cm LVPW Systolic Thickness 2.3 cm LVOT Diameter 2.1 cm LV Ejection Fraction 2D Teich 63.0 % LV Ejection Fraction MOD 2C 73.1 % LV Ejection Fraction 2C AL 73.4 % LA Diameter 6.4 cm LA Width 6.0 cm LA Height 6.7 cm RA Width 4.3 cm RA Height 6.5 cm Aorta at Sinotubular Diameter 3.2 cm IVC Diameter 1.3 cm M-MODE Aortic Annulus Diameter 3.1 cm LA Ao Ratio MM 2.0 MV E Point Septal Separation 0.4 cm DOPPLER AV Peak Velocity 374.0 cm/s LVOT Peak Velocity 84.0 cm/s AV Area Cont Eq vti 0.9 cm squared AV Area Cont Eq pk 0.8 cm squared MV Area PHT 5.1 cm squared MV E' Velocity 104.0 cm/s Mitral E to MV E' Ratio 17.4 Mitral E to LV E' Lateral Ratio 19.6 Mitral E to LV E' Septal Ratio 15.6 TR Peak Velocity 258.3 cm/s TR Peak Gradient 26.7 mmHg TV Peak E Velocity 66.0 cm/s Right Atrial Pressure 10.0 mmHg Pulmonary Artery Systolic Pressu 36.7 mmHg PV Peak Velocity 82.0 cm/s RV Acceleration Time 0.1 s RV Ejection Time 0.3 s RV AcT/ET 0.2 FINDINGS Left Ventricle Normal left ventricular size, systolic function and wall thickness, with no regional wall motion abnormalities. Rhythm precludes evaluation of diastolic function. Left ventricular ejection fraction is estimated at 65 %. Right Ventricle Mildly increased right ventricular size. Normal right ventricular systolic function. Mild pulmonary hypertension, RVSP 36.7 mmHg. Right Atrium Moderately increased right atrial size. Left Atrium Moderately increased left atrial size. Mitral Valve Structurally normal mitral valve. Mitral annular calcification. Severe mitral valve regurgitation. Aortic Valve Structurally normal trileaflet aortic valve. Moderate aortic valve calcification. Moderate aortic valve stenosis, mean gradient 25.1 mmHg, JENNY 0.93 cm squared. Trace to mild aortic valve regurgitation. Tricuspid Valve Structurally normal tricuspid valve. Moderate tricuspid valve regurgitation. Pulmonic Valve Pulmonic valve not well visualized. Mild pulmonary valve regurgitation. Pericardium Normal pericardium without effusion. Aorta Normal ascending aorta dimension. IVC Inferior vena cava not visualized. CONCLUSIONS Normal left ventricular size, systolic function and wall thickness, with no regional wall motion abnormalities. Rhythm precludes evaluation of diastolic function. Left ventricular ejection fraction is estimated at 65 %. Mildly increased right ventricular size. Normal right ventricular systolic function. Mild pulmonary hypertension, RVSP 36.7 mmHg. Moderately increased right atrial size. Moderately increased left atrial size. Structurally normal mitral valve. Mitral annular calcification. Severe mitral valve regurgitation. Structurally normal trileaflet aortic valve. Moderate aortic valve calcification. Moderate aortic valve stenosis, mean gradient 25.1 mmHg, JENNY 0.93 cm squared. Trace to mild aortic valve regurgitation. Structurally normal tricuspid valve. Moderate tricuspid valve regurgitation. Dr. Edgard Arredondo MD (Electronically Signed) Final Date: 07 June 2022 09:30 S
--- NOTE | 2022-06-06 19:22 | USCV_ITS ---
Josr Mansi Age: 87 Gender: F : 1935 Exam Date: 06/06/2022 23:40 Ordering Phys: Tl Bonds MD Technologist: LINDA [place]am [place] [facility] [place]ication: TIA today -- RIGHT hemiparesis with LEFT visual disturbances. No DM, Non-smoker Risk Factors: TIA today -- RIGHT hemiparesis with LEFT visual disturbances. No DM, Non-smoker Previous Vascular Surgery: None Right Brachial BP: / Left Brachial BP: / Right Left Velocity (cm/s) Spectral Plaque Velocity (cm/s) Spectral Plaque Syst/Diast Broadening Syst/Diast Broadening 51.80/ 14.30 Min None Prox CCA 55.90 / 13.80 Min None 34.20/ 9.10 Min None Mid CCA 38.10 / 11.20 Min None 34.70/ 6.90 Min None Distal CCA 40.80 / 12.50 Min None 21.40/ 7.20 Min Homo Prox ICA 31.60 / 9.90 Min Homo 33.80/ 10.90 Min Homo Mid ICA 69.00 / 21.70 Min Homo 66.40/ 23.70 Min Homo Distal ICA 72.30 / 21.00 Min Homo 56.10 Min Homo ECA 52.60 Min Homo 1.28 ICA/CCA 1.29 Not Vertebral Antegrade Visualized 21.00/ 8.50 cm/s 31.60/ 11.80 cm/s Tri Subclavian Tri 44.70 56.50 FINDINGS Comparison: none available. No significant elevation of systolic or diastolic velocities. Waveforms are normal. Minimal amount of calcified plaque or intimal thickening identified. Right vertebral artery is not visualized. CONCLUSIONS Bilateral ICA stenosis less than 50%. Right vertebral artery not visualized. Dr. Helen Gutierrez DO (Electronically Signed) Final Date: 07 June 2022 07:59 S
--- NOTE | 2022-06-06 19:38 | PC.NURSE ---
Report from MARY Zavaleta. Pt sitting on side of bed. Just returned from bathroom. NAD. Denies needs at this time. Updated on plan of care. Questions addressed.
[2022-06-06 19:40] VITALS: BP 117/73; RESP 20; O2SAT 92
[2022-06-06 22:30] VITALS: BP 112/72; PULSE 92; RESP 18; O2SAT 94
[2022-06-06 23:30] VITALS: BP 110/70; PULSE 91; RESP 16; O2SAT 91
[2022-06-07] VITALS (8 sets, daily range): BP systolic 94–132; BP diastolic 65–86; PULSE 69–91; RESP 16–20; TEMP 36.4–36.8; O2SAT 91–98
[2022-06-07 05:58] LABS: Basophils % 0.7 %; Eosinophils # 0.2 10^3/uL (0.0-0.8); Eosinophils % 3.1 %; Hemoglobin 14.6 g/dL (11.5-15.3); Lymphocytes # 1.6 10^3/uL (0.8-4.8); Lymphocytes % 28.6 %; Mean Corpuscular HGB Conc 31.7 g/dL (30.0-36.0); Mean Corpuscular Hemoglobin 28.6 pg (28.0-34.0); Mean Platelet Volume 10.4 fL (7.4-10.4); Monocytes # 0.7 10^3/uL (0.2-0.9); Monocytes % 12.4 %; Neutrophils # 3.14 10^3/uL (1.8-7.7); Neutrophils % 54.9 %; Nucleated Red Blood Cells % 0 %; Platelet Count 157 10^3/cmm (130-400); Red Blood Count 5.11 10^6/uL (4.1-5.3); Red Cell Distribution Width 14.4 % (12.1-15.1); White Blood Count 5.7 10^3/uL (4.0-10.0)
[2022-06-07 06:09] LABS: INR 1.07 (0.8-1.2)
[2022-06-07 06:26] LABS: Alanine Aminotransferase 15 U/L (0-33); Albumin Level 3.3 g/dL (3.5-5.2); Alkaline Phosphatase 79 IU/L (35-105); Anion Gap 11.3 (5-19); Aspartate Amino Transferase 22 U/L (0-32); Blood Urea Nitrogen 20 mg/dL (8-23); Calcium 8.7 mg/dL (8.5-10.5); Carbon Dioxide 30 mmol/L (22-29); Chloride 103 mmol/L (98-107); Chol HDL Ratio 5.08 mg/dL (0.0-4.40); Cholesterol 203 mg/dL (0-200); Globulin 2.3 g/dL (1.3-4.6); Glucose 105 mg/dL (65-115); HDL Cholesterol 40 mg/dL (60-100); LDL Cholesterol Calculated 142 mg/dL (50-129); LDL HDL Ratio 3.55 RATIO (0.00-3.22); Osmolality Calculated 293 mOsm/kg (285-295); Potassium 4.3 mmol/L (3.5-5.1); Sodium 140 mmol/L (136-145); Total Bilirubin 0.6 mg/dL (0.15-1.2); Total Protein 5.6 g/dL (6.6-8.7); Triglycerides 103 mg/dL (0-150)
[2022-06-07 07:06] LABS: Folate Level > 20.0 ng/mL (4.8-37.3); Vitamin B12 507 pg/mL (232-1245)
--- NOTE | 2022-06-07 08:28 | PM.CONSULT ---
Providers/Reason For Consult Consulting Physician/Specialty*: Julius Saab MD/Cardiology Reason for Consult*: Mitral regurgitation Requesting Physician: Dr Bonds Attending Physician: Tl Bonds MD Primary Care Provider: Chung Curry MD History of Present Illness History of Present Illness Mansi Ovalles is a 87 year old female with past medical history of CAD, atrial fibrillation on anticoagulation with Eliquis, aortic stenosis presented to the hospital with blurred vision and right eye and tingling sensation in right hand and shoulder. These were transient. Symptoms resolved. She had similar episode in the past. Cardiology was consulted as patient's troponins went up from 160-175. Echocardiogram shows normal LV systolic function. Has severe mitral regurgitation. Also was found to have moderate to severe aortic stenosis. Patient denies any chest pain. Review of Systems General: Reports: 10 or more systems reviewed and unremarkable except in HPI and below Card: Denies: palpitations, edema, swelling of feet/ankles, dyspnea on exertion, orthopnea or leg pain with exertion Resp: Denies: dyspnea, productive cough, wheezing or pain on inspiration GI: Denies: abdominal pain, nausea, vomiting, diarrhea or constipation : Denies: flank pain Musc: Denies: back pain, extremity pain or extremity swelling Neuro: Denies: headache(s), difficulty walking or confusion Medications/Allergies Home Medications Medication Instructions Recorded Confirmed Last Taken Type cholecalciferol (vitamin D3) 10 400 unit PO DAILY 10/10/20 06/07/22 06/06/22 09:00 History mcg (400 unit) capsule citalopram 10 mg tablet 10 mg PO DAILY 10/10/20 06/07/22 06/06/22 09:00 History garlic 1,000 mg capsule 1,000 mg PO DAILY 10/10/20 06/07/22 06/06/22 09:00 History krill yru-engjz-8-dha-epa 300 1 cap PO DAILY 10/10/20 06/07/22 06/06/22 09:00 History mg-90 mg (27 mg-45 mg) capsule magnesium oxide 500 mg capsule 500 mg PO DAILY 10/10/20 06/07/22 06/06/22 09:00 History red yeast rice 600 mg capsule 600 mg PO DAILY 10/10/20 06/07/22 06/06/22 09:00 History zinc 50 mg tablet 50 mg PO DAILY 10/10/20 06/07/22 06/06/22 09:00 History apixaban 2.5 mg tablet (Eliquis) 2.5 mg PO BID #180 tabs 01/31/21 06/07/22 06/06/22 09:00 Rx fluticasone propionate 50 1 spray intranasal DAILY 05/09/21 06/07/22 06/06/22 09:00 History mcg/actuation nasal spray,suspension (Flonase Allergy Relief) potassium chloride 20 mEq 40 meq PO DAILY #180 tabs 08/28/21 06/07/22 06/06/22 09:00 Rx tablet,extended release furosemide 80 mg tablet See Rx Instructions .Route 09/19/21 06/07/22 06/06/22 09:00 Rx .COMPLEX #180 tabs pantoprazole 40 mg tablet,delayed 40 mg PO DAILY #90 tabs 03/26/22 06/07/22 06/06/22 09:00 Rx release (Protonix) aspirin 81 mg tablet,delayed 81 mg PO DAILY 30 days #30 tabs 06/07/22 Unknown Rx release atorvastatin 40 mg tablet 40 mg PO DAILY 30 days #30 tabs 06/07/22 Unknown Rx diltiazem HCl 180 mg 120 mg PO QAM 06/07/22 06/07/22 06/06/22 09:00 History capsule,extended release 24 hr metoprolol succinate 25 mg 12.5 mg PO .at bedtime #45 tabs 06/18/22 Unknown Rx tablet,extended release 24 hr Allergies Allergy/AdvReac Type Severity Reaction Status Date / Time Penicillins Allergy Unknown Verified 03/26/22 13:11 PFSH Acute PFSH: Medical History (Updated 06/19/22 @ 12:38 by Julius Saab M.D) Acute non-ST elevation myocardial infarction (NSTEMI) Afib Aortic stenosis, mild Arm paresthesia, right ASHD (arteriosclerotic heart disease) Atrial fibrillation Cellulitis Chronic hypercapnic respiratory failure COPD (chronic obstructive pulmonary disease) Diastolic heart failure Well compensated continue medicine. Essential (primary) hypertension GERD (gastroesophageal reflux disease) History of nonmelanoma skin cancer Mild tricuspid valve regurgitation NSTEMI (non-ST elevated myocardial infarction) Obesity hypoventilation syndrome Positive cardiac stress test Respiratory failure with hypercapnia Respiratory failure with hypoxia Restrictive lung disease SOB (shortness of breath) TIA (transient ischemic attack) Transient vision disturbance Varicose veins of leg with pain Venous (peripheral) insufficiency Surgical History H/O hernia repair History of appendectomy History of cholecystectomy History of PTCA Stented coronary artery Family History Other Cancer Diabetes Social History Smoking and tobacco status: never smoked Second hand smoke exposure: No Smoking risk assessment/counseling performed?: No Alcohol intake: never Lives independently: Yes Household members: none Marital status: / Current occupational status: retired History of recent travel: No Current gender identity: Female Vitals/I&O/Wt Last Vital Signs Temp 97.6 F 06/07/22 07:52 Pulse 87 06/07/22 07:52 Resp 18 06/07/22 07:52 BP 132/86 06/07/22 07:52 Pulse Ox 95 06/07/22 07:52 O2 Del Method 06/07/22 07:52 O2 Flow Rate 2 06/07/22 01:35 06/06/22 06/07/22 06/07/22 22:59 06:59 14:59 Intake Total 1000 / 1000 290 / 1290 Balance 1000 / 1000 290 / 1290 Weight last 48 hrs Weight 230 lb Physical Exam Narrative: GENERAL: Patient is alert, awake and oriented x3. [] NECK: No jugular vein distension. [] HEENT: No cyanosis. No icterus. No pallor. [] HEART: Regular S1 and S2. Grade 3/6 systolic murmur LUNGS: Clear to auscultate bilaterally. [] ABDOMEN: Soft, nontender and nondistended. Positive bowel sounds. No guarding, rebound or tenderness. [] CENTRAL NERVOUS SYSTEM: Grossly nonfocal. [] EXTREMITIES: Lower extremities with 1+ edema bilaterally. Pulses palpable in the lower extremities, both dorsalis pedis and posterior tibial. [] Data : 06/07/22 05:22 06/07/22 05:22 A&P Assessment and plan (1) Aortic stenosis: Status: Acute (2) Afib: Status: Acute (3) SOB (shortness of breath): Status: Acute (4) Mitral regurgitation: Status: Acute (5) ASHD (arteriosclerotic heart disease): Status: Acute (6) Troponin level elevated: Status: Acute Plan Patient's troponin elevation is likely secondary to demand ischemia. No chest pain. Her EF is normal. We will medically manage it. As outpatient can consider stress test. Dyspnea on exertion and shortness of breath related to severe mitral regurgitation. I discussed different options with her. She says she is not sure if she would want to get invasive procedure for it. We will discuss as outpatient. Continue current medications. Thank you for involving us with care of this patient. We will follow as outpatient. Please call with questions Consult Attestations Medical Necessity Statement: Care expected to cross 2 midnights Coding Level of Care Code Acute [employer] for Rachelle Jarrett Diagnoses Aortic stenosis I35.0 Afib I48.91 SOB (shortness of breath) R06.02 Mitral regurgitation I34.0 ASHD (arteriosclerotic heart disease) I25.10 Troponin level elevated R77.8
[2022-06-07] MEDS: citalopram 20 mg Tablet 10 MG PO (09:42)
[2022-06-07] MEDS: atorvastatin 40 mg Tablet PO (09:42)
[2022-06-07] MEDS: pantoprazole DR 40 mg Tablet PO (09:42)
[2022-06-07] MEDS: aspirin 81 mg EC Tablet PO (09:42)
[2022-06-07] MEDS: FUROsemide 40 mg Tablet PO (10:17)
[2022-06-07] MEDS: dilTIAZem 60 mg Tablet PO (10:17)
--- NOTE | 2022-06-07 10:18 | P.DS_ITS ---
Discharge Providers Date of Admission: 06/06/22 17:31 Date of Discharge: June 07, 2022 Attending Provider at Admission: Tl Bonds MD Attending Provider at Discharge: Tl Bonds MD Primary Care Provider: Chung Curry MD Diagnoses at Discharge Discharge Diagnosis (1) TIA (transient ischemic attack): Status: Acute (2) Diastolic heart failure: Status: Acute Permanent problem details: Well compensated continue medicine. (3) Obesity hypoventilation syndrome: Status: Acute (4) Chronic hypercapnic respiratory failure: Status: Acute (5) Restrictive lung disease: Status: Acute (6) NSTEMI (non-ST elevated myocardial infarction): Status: Acute (7) Atrial fibrillation: Status: Acute (8) ASHD (arteriosclerotic heart disease): Status: Acute Reason for Visit Reason for Visit: Weakness, vision loss in one eye Hospital Course Hospital Course Mansi Ovalles is a 87 year old female with PMH of CAD, S/P PCI, A.fib , on Eliquis , HTN , Mild to mod MR, Mild , HFpEF ,? Varicose veins of leg,chronic hypercapnic R/F , OHS , came in with c/o Acute onset of blurred vision in rt eye which lasted transiently was accompanied by tingling sensation in the rt hand and rt shoulder discomfort, she denied any chest pain, palpitation, dizziness,headache,lightheadedness,weakness in any body part,nausea, vomiting. She reports a similar episode 2 weeks back which lasted transiently.When I interacted with the patient she denied had no neurological deficit. Upon arrival in the ER she was worked up for above mention complain. Pertinent Imaging studies: C.T Head without contrast : No acute Intracranial findings EKG: A.fib Pertinent Labs : WBC : 6.4 , H& H : 16/51 , PLT : 187 ,Na: 141, K: 4.8 BUN/SCR : 20/0.9 HCO3: 33, Troponin: 160-173 , Pro BNP: 1375 Hospital course: She was admitted for the management of what appears to be likely TIA. She was kept on stroke protocol CV carotid duplex BI:Bilateral ICA stenosis less than 50%. 2D echo: Normal left ventricular size, systolic function and wall ?thickness, with no regional wall motion abnormalities. Rhythm precludes evaluation of diastolic function. Left ventricular ejection fraction is estimated at 65 %.?Mildly increased right ventricular size. Normal right ?ventricular systolic function. Mild pulmonary hypertension, RVSP 36.7 mmHg. Moderately increased right atrial size?Moderately increased left atrial size. ?Structurally normal mitral valve. Mitral annular calcification.?Severe mitral v alve regurgitation.?Structurally normal trileaflet aortic valve. Moderate aortic?valve calcification.Moderate aortic valve stenosis, mean ?gradient 25.1 mmHg, JENNY 0.93 cm squared. Trace to mild aortic valve regurgitation.Structurally normal tricuspid valve. Moderate tricuspid valve ?regurgitation. She was kept on aspirin and statin, permissive hypertension, telemetry monitoring, had no neurological deficit, she was in A. fib on telemetry monitoring. She has been resumed on her home medications, she has been asked to hold Eliquis till tomorrow and then continue thereafter. For severe MR: She will follow cardiology as outpatient, for possible mitral clip, repair or replacement. She was also managed for NSTEMI type II: She denied any chest pain shortness of breath, nausea vomiting. EKG failed to show any acute ST-T wave changes. Overall she responded well to above medical management and is being discharged in stable condition to home. CT head and neck was not pursued: As posterior circulation stroke is not suspected. Physical Exam Const: COMMON NORMALS: patient oriented x3 HENMT: COMMON NORMALS: normocephalic and atraumatic HEAD & SCALP: normocephalic and atraumatic Chest: CHEST: Yes Symmetrical chest wall rise Resp: COMMON NORMALS: normal respiratory effort, No retractions and clear to auscultation bilaterally AUSCULTATION: clear to auscultation bilaterally Cardio: COMMON NORMALS: Peripheral pulses 2+ throughout PERIPHERAL PULSES: Peripheral pulses 2+ throughout OTHER: Irregularly irregular rhythm, S1-S2 variable intensity, pansystolic murmur in mitral area, Ejection systolic murmur aortic area GI: COMMON NORMALS: Normal to inspection, nondistended, normoactive bowel sounds present, Soft to palpation, non-tender, No hepatosplenomegaly present and no masses AUSCULTATION: Yes normoactive bowel sounds PALPATION: Yes Soft to palpation and Yes No hepatosplenomegaly present RECTAL EXAM: deferred Neuro: COMMON NORMALS: patient oriented x3 Discharge Data Studies Completed and Pending Completed Studies During Hospitalization Category Date Time Status CT head wo con* [id number] Urgent Cat Scan 06/06/22 14:51 Completed XR chest 1V portable [id number] Urgent Exams 06/06/22 16:37 Completed CV. echo complete* [id number] Routine Ultrasound 06/06/22 19:22 Completed US carotid duplex bilateral [CV carotid duplex BI* Ultrasound 06/06/22 19:22 Completed [id number]] Routine Pending at discharge Category Date Time Status Complete Blood Count w/Auto AM LABS Lab 06/08/22 04:00 Ordered Complete Blood Count w/Auto AM LABS Lab 06/09/22 04:00 Ordered Comprehensive Metabolic Panel AM LABS Lab 06/08/22 04:00 Ordered Comprehensive Metabolic Panel AM LABS Lab 06/09/22 04:00 Ordered Troponin T (5th) Once Routine Lab 06/07/22 09:25 Received Radiology Impressions Head CT 06/06/22 14:51 IMPRESSION: No acute intracranial abnormality. Chest X-Ray 06/06/22 16:37 IMPRESSION: Cardiomegaly with central pulmonary vascular congestion. Laboratory Results WBC 5.7 10^3/uL (4.0-10.0) 06/07/22 05:22 RBC 5.11 10^6/uL (4.1-5.3) 06/07/22 05:22 Hgb 14.6 g/dL (11.5-15.3) 06/07/22 05:22 Hct 46.0 % (37.0-47.0) 06/07/22 05:22 MCV 90.0 fl (81-99) 06/07/22 05:22 MCH 28.6 pg (28.0-34.0) 06/07/22 05:22 MCHC 31.7 g/dL (30.0-36.0) 06/07/22 05:22 RDW 14.4 % (12.1-15.1) 06/07/22 05:22 Plt Count 157 10^3/cmm (130-400) 06/07/22 05:22 MPV 10.4 fL (7.4-10.4) 06/07/22 05:22 Neut % (Auto) 54.9 % 06/07/22 05:22 Lymph % (Auto) 28.6 % 06/07/22 05:22 Cotton % (Auto) 12.4 % 06/07/22 05:22 Eos % (Auto) 3.1 % 06/07/22 05:22 Baso % (Auto) 0.7 % 06/07/22 05:22 Neut # (Auto) 3.14 10^3/uL (1.8-7.7) 06/07/22 05:22 Lymph # (Auto) 1.6 10^3/uL (0.8-4.8) 06/07/22 05:22 Cotton # (Auto) 0.7 10^3/uL (0.2-0.9) 06/07/22 05:22 Eos # (Auto) 0.2 10^3/uL (0.0-0.8) 06/07/22 05:22 Baso # (Auto) 0.0 10^3/uL (0.0-0.1) 06/07/22 05:22 Nucleated RBC % (auto) 0 % 06/07/22 05:22 Nucleated RBCs # 0.0 /100WBC 06/07/22 05:22 PT 14.20 SECONDS (12.1-14.9) 06/07/22 05:22 INR 1.07 (0.8-1.2) 06/07/22 05:22 Sodium 140 mmol/L (136-145) 06/07/22 05:22 Potassium 4.3 mmol/L (3.5-5.1) 06/07/22 05:22 Chloride 103 mmol/L (98-107) 06/07/22 05:22 Carbon Dioxide 30 mmol/L (22-29) H 06/07/22 05:22 Anion Gap 11.3 (5-19) 06/07/22 05:22 BUN 20 mg/dL (8-23) 06/07/22 05:22 Creatinine 0.8 mg/dL (0.5-0.9) 06/07/22 05:22 GFR Calculation Not Reportable 06/07/22 05:22 Glucose 105 mg/dL (65-115) 06/07/22 05:22 Calculated Osmolality 293 mOsm/kg (285-295) 06/07/22 05:22 Calcium 8.7 mg/dL (8.5-10.5) 06/07/22 05:22 Magnesium 2.0 mg/dL (1.7-2.3) 06/06/22 14:16 Total Bilirubin 0.6 mg/dL (0.15-1.2) 06/07/22 05:22 AST 22 U/L (0-32) 06/07/22 05:22 ALT 15 U/L (0-33) 06/07/22 05:22 Alkaline Phosphatase 79 IU/L (35-105) 06/07/22 05:22 Troponin T Baseline 160 ng/L (0-10) H* 06/06/22 14:16 Troponin T 120 Minute 173.5 ng/L (0-10) H 06/06/22 16:38 Delta Troponin T 13.5 ABS# (0-10) H* 06/06/22 16:38 NT-Pro-B Natriuret Pep 1375 pg/mL (0-450) H 06/06/22 14:16 Total Protein 5.6 g/dL (6.6-8.7) L 06/07/22 05:22 Albumin 3.3 g/dL (3.5-5.2) L 06/07/22 05:22 Globulin 2.3 g/dL (1.3-4.6) 06/07/22 05:22 Triglycerides 103 mg/dL (0-150) 06/07/22 05:22 Triglycerides Cancelled 06/07/22 05:22 Cholesterol 203 mg/dL (0-200) H 06/07/22 05:22 Cholesterol Cancelled 06/07/22 05:22 LDL Cholesterol, Calc 142 mg/dL (50-129) H 06/07/22 05:22 LDL Cholesterol, Calc Cancelled 06/07/22 05:22 HDL Cholesterol 40 mg/dL (60-100) L 06/07/22 05:22 HDL Cholesterol Cancelled 06/07/22 05:22 LDL/HDL Ratio 3.55 RATIO (0.00-3.22) H 06/07/22 05:22 LDL/HDL Ratio Cancelled 06/07/22 05:22 Cholesterol/HDL Ratio 5.08 mg/dL (0.0-4.40) H 06/07/22 05:22 Cholesterol/HDL Ratio Cancelled 06/07/22 05:22 Lipase 33 U/L (13-60) 06/06/22 14:16 Vitamin B12 507 pg/mL (232-1245) 06/07/22 05:22 Vitamin B12 Cancelled 06/07/22 05:22 Folate > 20.0 ng/mL (4.8-37.3) 06/07/22 05:22 Vitals Last Vital Signs Temp 97.6 F 06/07/22 07:52 Pulse 87 06/07/22 07:52 Resp 18 06/07/22 07:52 BP 132/86 06/07/22 07:52 Pulse Ox 95 06/07/22 07:52 O2 Del Method 06/07/22 07:52 O2 Flow Rate 2 06/07/22 01:35 Discharge Plan Discharge Patient Disposition: Home Condition: Stable Prescriptions: New atorvastatin 40 mg Tablet 40 mg PO DAILY 30 Days Qty: 30 3RF aspirin 81 mg Tablet,Delayed Release (Dr/Ec) 81 mg PO DAILY 30 Days Qty: 30 0RF Continued cholecalciferol (vitamin D3) 10 mcg (400 unit) capsule 400 unit PO DAILY citalopram 10 mg tablet 10 mg PO DAILY garlic 1,000 mg capsule 1,000 mg PO DAILY krill [id number]-psiqt-[id number]-epa 300-90 (27-45) mg capsule 1 cap PO DAILY red yeast rice 600 mg capsule 600 mg PO DAILY magnesium oxide 500 mg capsule 500 mg PO DAILY fluticasone propionate [Flonase Allergy Relief] 50 mcg/actuation spray,suspension 1 spray INTRANASAL DAILY zinc 50 mg tablet 50 mg PO DAILY metoprolol succinate 25 mg tablet extended release 24 hr 12.5 mg PO .at bedtime Qty: 45 3RF Eliquis 2.5 mg tablet 2.5 mg PO BID Qty: 180 3RF potassium chloride 20 mEq tablet extended release 40 meq PO DAILY Qty: 180 3RF furosemide 80 mg tablet See Rx Instructions .ROUTE .COMPLEX Qty: 180 3RF Dose Instruction: Take 1 tablet by mouth twice daily Rx Instructions: Take 1 tablet by mouth twice daily pantoprazole [Protonix] 40 mg tablet,delayed release (DR/EC) 40 mg PO DAILY Qty: 90 3RF diltiazem HCl 180 mg capsule,extended release 24hr 120 mg PO QAM Discharge Orders: Discharge Order (Routine); Ordered 06/07/22 Ordered By: Tl Bonds Referrals: Julius Saab M.D [Physician] - 07/27/22 10:00 am Chung Curry MD [Primary Care Provider] - 06/19/22 2:30 pm Discharge Diet: Cardiac Patient Instructions: Atrial Fibrillation, Aspirin (By mouth), Atorvastatin (By mouth), Heart Attack (DC), Opioid Safety, Stroke Stoplight, TIA Discharge Attestations Time Spent in Discharge Care*: less than 30 min Quality Metrics Clinical Quality Measures [ No reported AMI, CVA or VTE this stay] Coding Level of Care Code Acute Chg FW DC note Exam Detailed Diagnoses TIA (transient ischemic attack) G45.9 Diastolic heart failure I50.30 Obesity hypoventilation syndrome E66.2 Chronic hypercapnic respiratory failure J96.12 Restrictive lung disease J98.4 NSTEMI (non-ST elevated myocardial infarction) I21.4 Atrial fibrillation I48.91 ASHD (arteriosclerotic heart disease) I25.10
[2022-06-07 10:26] LABS: Troponin T (5th) Once 191 ng/L (0-10)
== END 2022-06-07 12:00 | disposition home or self-care (01) | DRG 69 ==
LOC: ER 23:17 → MEDSURG 23:49
PROVIDERS: Emergency Medicine; Admitting Provider Internal Medicine; Emergency Provider Emergency Medicine; PCP Family Medicine; Visit Provider Internal Medicine
DX: G45.9 Transient cerebral ischemic attack, unspecified (principal); I21.A1 Myocardial infarction type 2; I50.32 Chronic diastolic (congestive) heart failure; J96.12 Chronic respiratory failure with hypercapnia; E66.2 Morbid (severe) obesity with alveolar hypoventilation; I25.10 Atherosclerotic heart disease of native coronary artery without angina pectoris; Z95.5 Presence of coronary angioplasty implant and graft; I48.91 Unspecified atrial fibrillation; Z79.01 Long term (current) use of anticoagulants; I11.0 Hypertensive heart disease with heart failure; I08.3 Combined rheumatic disorders of mitral, aortic and tricuspid valves; Z68.39 Body mass index [BMI] 39.0-39.9, adult; J44.9 Chronic obstructive pulmonary disease, unspecified; K21.9 Gastro-esophageal reflux disease without esophagitis; Z85.828 Personal history of other malignant neoplasm of skin; I83.90 Asymptomatic varicose veins of unspecified lower extremity
CPT/HCPCS: 36415; 70450; 71045; 80053; 80061; 82607; 82746; 83690; 83735; 83880; 84484; 85025; 85610; 93005; 93306; 93880; 96360; 99285; J7030

== ENCOUNTER → 2022-07-12 09:33 | Outpatient (BNVA) | payer MEDICARE, OTHER, SELFPAY | PROVIDERS: PCP Family Medicine; Visit Provider Internal Medicine Critical Care Medicine | DX: J96.12 Chronic respiratory failure with hypercapnia (principal); E66.2 Morbid (severe) obesity with alveolar hypoventilation; J98.4 Other disorders of lung; I34.0 Nonrheumatic mitral (valve) insufficiency; Z68.38 Body mass index [BMI] 38.0-38.9, adult; Z86.73 Personal history of transient ischemic attack (TIA), and cerebral infarction without residual deficits; M25.559 Pain in unspecified hip | CPT/HCPCS: 99214 ==

== ENCOUNTER → 2022-07-27 09:54 | Outpatient (BNVA) | payer MEDICARE, OTHER, SELFPAY | PROVIDERS: PCP Family Medicine; Visit Provider Internal Medicine | DX: I11.0 Hypertensive heart disease with heart failure (principal); I50.30 Unspecified diastolic (congestive) heart failure; I25.10 Atherosclerotic heart disease of native coronary artery without angina pectoris; I48.91 Unspecified atrial fibrillation; Z79.01 Long term (current) use of anticoagulants; I35.0 Nonrheumatic aortic (valve) stenosis; I34.0 Nonrheumatic mitral (valve) insufficiency; Z86.73 Personal history of transient ischemic attack (TIA), and cerebral infarction without residual deficits; I25.2 Old myocardial infarction; Z95.1 Presence of aortocoronary bypass graft | CPT/HCPCS: 99214 ==

== ENCOUNTER → 2022-11-07 08:13 | Outpatient (BNVA) | payer MEDICARE, OTHER, SELFPAY | PROVIDERS: PCP Family Medicine; Visit Provider Dermatology | DX: D48.9 Neoplasm of uncertain behavior, unspecified (principal) | CPT/HCPCS: 88305 ==

== ENCOUNTER 2022-12-27 11:40 | Outpatient (CLI) | payer MEDICARE, OTHER, SELFPAY ==
--- NOTE | 2022-12-27 12:15 | USCV_ITS ---
Josr Mansi Age: 87 Gender: F : 1935 Exam Date: 12/27/2022 12:14 Ordering Phys: Julius Saab M.D ([email or web address]) Technologist: ZHANG [place] [facility] [place]: SHORTNESS OF BREATH BP: 112 / 62 HR: 38 Rhythm: Atrial fibrillation Technical Quality: Adequate MEASUREMENTS (Male / Female) Normal Values 2D ECHO LVOT Diameter 2.0 cm LV Ejection Fraction MOD 2C 72.5 % LV Ejection Fraction 2C AL 72.0 % LA Diameter 4.5 cm LA Width 5.0 cm LA Height 6.3 cm RA Width 3.5 cm RA Height 6.4 cm Aorta at Sinotubular Diameter 2.5 cm IVC Diameter 1.7 cm M-MODE Aortic Annulus Diameter 3.3 cm DOPPLER AV Peak Velocity 346.8 cm/s LVOT Peak Velocity 104.0 cm/s AV Area Cont Eq vti 0.9 cm squared AV Area Cont Eq pk 0.9 cm squared MV Peak Velocity 203.0 cm/s MV Area PHT 3.1 cm squared MV E' Velocity 104.5 cm/s Mitral E to MV E' Ratio 19.9 Mitral E to LV E' Lateral Ratio 19.9 Mitral E to LV E' Septal Ratio 20.1 TR Peak Velocity 378.3 cm/s TR Peak Gradient 57.2 mmHg TR Mean Velocity 314.0 cm/s TR Mean Gradient 41.0 mmHg TR Velocity Time Integral 119.0 cm TV Peak E Velocity 68.0 cm/s Right Atrial Pressure 3.0 mmHg Pulmonary Artery Systolic Pressu 60.2 mmHg PV Peak Velocity 99.0 cm/s RV Acceleration Time 0.1 s RV Ejection Time 0.3 s RV AcT/ET 0.5 FINDINGS Left Ventricle Left ventricle is normal in size. LV systolic function is normal with EF 55 to 60%. No regional wall motion abnormalities are seen. Right Ventricle Normal in size and function. Right Atrium Not well-visualized. Left Atrium Severely dilated. Mitral Valve Moderate mitral annular calcification is seen. Moderate to severe mitral regurgitation. Mean gradient across the mitral valve is 7.6 mmHg. This is consistent with moderate mitral stenosis. Aortic Valve Aortic valve is calcified. Moderate aortic stenosis with mean gradient across aortic valve of 27.3 mmHg and aortic valve area of 1 cm squared. Tricuspid Valve Mild tricuspid regurgitation. Pulmonary artery systolic pressure is 60 to 65 mmHg. This is consistent with severe pulmonary hypertension. Pulmonic Valve Not well-visualized Pericardium Normal Aorta Normal in size IVC Appears to be normal. CONCLUSIONS LV systolic function is normal with EF of 55 to 60%. Left atrial dilation Moderate mitral regurgitation. Moderate mitral stenosis Moderate to severe aortic stenosis Mild tricuspid regurgitation. Severe pulmonary hypertension Compared to prior echocardiogram from 06/2022, patient has severe pulmonary hypertension. Julius Saab MD (Electronically Signed) Final Date: 03 January 2023 12:45 S
== END 2022-12-27 11:41 | disposition home or self-care (01) ==
LOC: RAD 11:41
PROVIDERS: PCP Family Medicine; Visit Provider Internal Medicine
DX: R06.02 Shortness of breath (principal); I48.91 Unspecified atrial fibrillation; I08.3 Combined rheumatic disorders of mitral, aortic and tricuspid valves
CPT/HCPCS: 93306

== ENCOUNTER → 2023-01-10 13:14 | Outpatient (BNVA) | payer MEDICARE, OTHER, SELFPAY | PROVIDERS: PCP Family Medicine; Visit Provider Internal Medicine Pulmonary Disease | DX: J96.12 Chronic respiratory failure with hypercapnia (principal); I34.0 Nonrheumatic mitral (valve) insufficiency; E66.2 Morbid (severe) obesity with alveolar hypoventilation; J98.4 Other disorders of lung; Z68.37 Body mass index [BMI] 37.0-37.9, adult; Z86.73 Personal history of transient ischemic attack (TIA), and cerebral infarction without residual deficits | CPT/HCPCS: 99214 ==

== ENCOUNTER → 2023-03-01 09:12 | Outpatient (BNVA) | payer MEDICARE, OTHER, SELFPAY | PROVIDERS: PCP Family Medicine; Visit Provider Internal Medicine | DX: I11.0 Hypertensive heart disease with heart failure (principal); I50.30 Unspecified diastolic (congestive) heart failure; I25.10 Atherosclerotic heart disease of native coronary artery without angina pectoris; I48.91 Unspecified atrial fibrillation; Z79.01 Long term (current) use of anticoagulants; I35.0 Nonrheumatic aortic (valve) stenosis; I34.0 Nonrheumatic mitral (valve) insufficiency; Z79.82 Long term (current) use of aspirin | CPT/HCPCS: 99214 ==

== ENCOUNTER → 2023-05-06 14:19 | Outpatient (BNVA) | payer MEDICARE, OTHER, SELFPAY | PROVIDERS: PCP Family Medicine; Referring Provider Family Medicine; Visit Provider Student in an Organized Health Care Education/Training Program | DX: M76.32 Iliotibial band syndrome, left leg (principal); M70.62 Trochanteric bursitis, left hip | CPT/HCPCS: 73560; 73565; 99203 ==

== ENCOUNTER → 2023-05-22 14:09 | Outpatient (BNVA) | payer MEDICARE, OTHER, SELFPAY | PROVIDERS: PCP Family Medicine; Visit Provider Dermatology | DX: L72.0 Epidermal cyst (principal) | CPT/HCPCS: 17000; 17003; 99213 ==

== ENCOUNTER 2023-05-23 12:55 | Outpatient (RCR) | payer MEDICARE, OTHER, SELFPAY | END 2023-06-03 23:59 | disposition home or self-care (01) | LOC: SPT 12:55 | PROVIDERS: PCP Family Medicine; Visit Provider Student in an Organized Health Care Education/Training Program | DX: M70.62 Trochanteric bursitis, left hip (principal); M25.562 Pain in left knee; R26.89 Other abnormalities of gait and mobility | CPT/HCPCS: 97110; 97140; 97161 ==

== ENCOUNTER 2023-06-04 06:00 | Outpatient (RCR) | payer MEDICARE, OTHER, SELFPAY | END 2023-07-04 23:59 | disposition home or self-care (01) | LOC: SPT 06:00 | PROVIDERS: PCP Family Medicine; Visit Provider Student in an Organized Health Care Education/Training Program | DX: M70.62 Trochanteric bursitis, left hip (principal); M25.562 Pain in left knee; R26.89 Other abnormalities of gait and mobility | CPT/HCPCS: 97110; 97140 ==

== ENCOUNTER → 2023-06-18 14:43 | Outpatient (BNVA) | payer MEDICARE, OTHER, SELFPAY | PROVIDERS: PCP Family Medicine; Visit Provider Internal Medicine Pulmonary Disease | DX: J96.12 Chronic respiratory failure with hypercapnia (principal); I51.7 Cardiomegaly | CPT/HCPCS: 36415; 71046; 80053; 83735; 83880; 85025; 99214 ==

== ENCOUNTER 2023-07-05 06:00 | Outpatient (RCR) | payer MEDICARE, OTHER, SELFPAY | END 2023-07-15 23:59 | disposition home or self-care (01) | LOC: SPT 06:00 | PROVIDERS: PCP Family Medicine; Visit Provider Student in an Organized Health Care Education/Training Program | DX: M70.62 Trochanteric bursitis, left hip (principal) | CPT/HCPCS: 97110; 97140 ==

== ENCOUNTER 2023-07-10 15:00 | Outpatient (CLI) | payer MEDICARE, OTHER, SELFPAY | END 2023-07-10 15:01 | disposition home or self-care (01) | LOC: SLEEP 07-11 11:57 | PROVIDERS: PCP Family Medicine; Visit Provider Internal Medicine Pulmonary Disease | DX: G47.10 Hypersomnia, unspecified (principal); G47.33 Obstructive sleep apnea (adult) (pediatric); R09.02 Hypoxemia | CPT/HCPCS: G0399 ==

== ENCOUNTER → 2023-07-11 13:28 | Outpatient (BNVA) | payer MEDICARE, OTHER, SELFPAY | PROVIDERS: PCP Family Medicine; Visit Provider Physician Assistant | DX: M70.62 Trochanteric bursitis, left hip (principal); M76.32 Iliotibial band syndrome, left leg | CPT/HCPCS: 73502; 99213 ==

== ENCOUNTER → 2023-08-09 08:18 | Outpatient (BNVA) | payer MEDICARE, OTHER, SELFPAY | PROVIDERS: PCP Family Medicine; Visit Provider Internal Medicine Pulmonary Disease | DX: I34.0 Nonrheumatic mitral (valve) insufficiency (principal); J96.12 Chronic respiratory failure with hypercapnia; E66.2 Morbid (severe) obesity with alveolar hypoventilation; J98.4 Other disorders of lung; Z99.81 Dependence on supplemental oxygen; Z68.36 Body mass index [BMI] 36.0-36.9, adult; I50.32 Chronic diastolic (congestive) heart failure | CPT/HCPCS: 99214 ==

== ENCOUNTER → 2023-08-13 12:15 | Outpatient (BNVA) | payer MEDICARE, OTHER, SELFPAY | PROVIDERS: PCP Family Medicine; Visit Provider Internal Medicine | DX: I11.0 Hypertensive heart disease with heart failure (principal); I50.30 Unspecified diastolic (congestive) heart failure; I35.0 Nonrheumatic aortic (valve) stenosis; I48.91 Unspecified atrial fibrillation; Z79.01 Long term (current) use of anticoagulants; Z79.82 Long term (current) use of aspirin; I25.10 Atherosclerotic heart disease of native coronary artery without angina pectoris; I34.0 Nonrheumatic mitral (valve) insufficiency | CPT/HCPCS: 36415; 80048; 83880; 99214 ==

== ENCOUNTER 2023-08-23 14:09 | Outpatient (CLI) | payer MEDICARE, OTHER, SELFPAY ==
--- NOTE | 2023-08-23 14:30 | USCV_ITS ---
Mansi Ovalles Age: 88 Gender: F : 1935 Exam Date: 08/23/2023 14:55 Ordering Phys: Julius Saab M.D ([email or web address]) Technologist: DEBORAH Exam Location: [facility] – [place] Indication: worsening SOB, , BP: 129 / 70 HR: 85 Rhythm: Atrial fibrillation Technical Quality: Adequate MEASUREMENTS (Male / Female) Normal Values 2D ECHO LV Diastolic Diameter PLAX 3.4 cm 4.2 - 5.9 / 3.9 - 5.3 cm LV Systolic Diameter PLAX 2.0 cm IVS Diastolic Thickness 1.5 cm 0.6 - 1.0 / 0.6 - 0.9 cm IVS Systolic Thickness 1.5 cm LVPW Diastolic Thickness 0.8 cm 0.6 - 1.0 / 0.6 - 0.9 cm LVPW Systolic Thickness 1.2 cm LVOT Diameter 2.2 cm LV Ejection Fraction 2D Teich 72.0 % LV Ejection Fraction MOD 2C 62.3 % LV Ejection Fraction 2C AL 61.6 % LA Diameter 5.1 cm LA Width 5.3 cm LA Height 7.0 cm RA Width 3.9 cm RA Height 6.5 cm Aorta at Sinotubular Diameter 2.5 cm IVC Diameter 1.8 cm M-MODE Aortic Annulus Diameter 3.6 cm LA Ao Ratio MM 1.5 MV E Point Septal Separation 0.6 cm DOPPLER AV Peak Velocity 315.3 cm/s LVOT Peak Velocity 97.0 cm/s AV Area Cont Eq vti 1.0 cm squared AV Area Cont Eq pk 1.1 cm squared MV Peak Velocity 230.0 cm/s MV Area PHT 5.1 cm squared Mitral E to A Ratio 4.1 MV E' Velocity 91.5 cm/s Mitral E to MV E' Ratio 18.1 Mitral E to LV E' Lateral Ratio 20.0 Mitral E to LV E' Septal Ratio 16.7 TR Peak Velocity 235.3 cm/s TR Peak Gradient 22.1 mmHg Right Atrial Pressure 5.0 mmHg Pulmonary Artery Systolic Pressu 27.1 mmHg PV Peak Velocity 68.0 cm/s RV Acceleration Time 0.1 s RV Ejection Time 0.3 s RV AcT/ET 0.2 FINDINGS Left Ventricle Technically limited quality echocardiogram. LV systolic function is normal with EF of 50 to 55%. No regional wall motion abnormalities are seen. Right Ventricle Normal in size and function Right Atrium Severely dilated Left Atrium Severely dilated Mitral Valve Moderate mitral annular calcification. Moderate mitral regurgitaiton. Moderate mitral stenosis with mean gradient of 8mmHg. Aortic Valve Thickened valve. Moderate aortic stenosis with mean gradient across aortic valve of 25mmHg and aortic valve area of 1cm2. Tricuspid Valve Mild tricuspid regurgitation. RVSP is 35-40mmHg. This is consistent with mild pulmonary hypertension Pulmonic Valve Not well visualized Pericardium Normal Aorta Normal in size IVC Appears to be normal CONCLUSIONS LV systolic function is normal with EF 50-55%. Severe biatrial enlargement Moderate mitral regurgitation. Moderate mitral stenosis. Moderate to severe aortic stenosis. Mild tricuspid regurgitation. Mild pulmonary hypertension. Compared to prior echocardiogram from 12/2022, no significant changes are seen Julius Saab MD (Electronically Signed) Final Date: 24 August 2023 13:54 S
== END 2023-08-23 14:10 | disposition home or self-care (01) ==
LOC: RAD 14:09
PROVIDERS: PCP Family Medicine; Visit Provider Internal Medicine
DX: R06.02 Shortness of breath (principal); I48.91 Unspecified atrial fibrillation; I34.0 Nonrheumatic mitral (valve) insufficiency; I35.0 Nonrheumatic aortic (valve) stenosis; I07.1 Rheumatic tricuspid insufficiency; I27.20 Pulmonary hypertension, unspecified
CPT/HCPCS: 93306

== ENCOUNTER 2023-09-13 09:58 | Outpatient (CLI) | payer MEDICARE, OTHER, SELFPAY ==
[2023-09-13 10:52] LABS: Anion Gap 14.3 (5-19); Blood Urea Nitrogen 24 mg/dL (8-23); Calcium 8.5 mg/dL (8.5-10.5); Carbon Dioxide 28 mmol/L (22-29); Chloride 99 mmol/L (98-107); Glucose 102 mg/dL (65-115); NT Pro B Type Natriuretic Pept 1467 pg/mL (0-450); Osmolality Calculated 288 mOsm/kg (285-295); Potassium 4.3 mmol/L (3.5-5.1); Sodium 137 mmol/L (136-145)
== END 2023-09-13 09:59 | disposition home or self-care (01) ==
PROVIDERS: PCP Family Medicine; Visit Provider Internal Medicine
DX: I34.0 Nonrheumatic mitral (valve) insufficiency (principal); I35.0 Nonrheumatic aortic (valve) stenosis; I48.91 Unspecified atrial fibrillation; R06.02 Shortness of breath
CPT/HCPCS: 36415; 80048; 83880

== ENCOUNTER → 2023-12-04 14:25 | Outpatient (BNVA) | payer MEDICARE, OTHER, SELFPAY | PROVIDERS: PCP Family Medicine; Visit Provider Internal Medicine | DX: I11.0 Hypertensive heart disease with heart failure (principal); I50.30 Unspecified diastolic (congestive) heart failure; I08.0 Rheumatic disorders of both mitral and aortic valves; I25.10 Atherosclerotic heart disease of native coronary artery without angina pectoris; I48.91 Unspecified atrial fibrillation; Z79.01 Long term (current) use of anticoagulants; Z79.82 Long term (current) use of aspirin | CPT/HCPCS: 99214 ==

== ENCOUNTER → 2024-01-15 12:38 | Outpatient (BNVA) | payer MEDICARE, OTHER, SELFPAY | PROVIDERS: PCP Family Medicine; Visit Provider Internal Medicine Pulmonary Disease | DX: I34.0 Nonrheumatic mitral (valve) insufficiency (principal); J96.12 Chronic respiratory failure with hypercapnia; E66.2 Morbid (severe) obesity with alveolar hypoventilation; J98.4 Other disorders of lung; I95.9 Hypotension, unspecified | CPT/HCPCS: 99214 ==

== ENCOUNTER 2024-01-30 12:03 | Outpatient (CLI) | payer MEDICARE, OTHER, SELFPAY ==
[2024-01-30 12:58] LABS: Basophils # 0.1 10^3/uL (0.0-0.1); Basophils % 0.9 %; Eosinophils # 0.2 10^3/uL (0.0-0.8); Eosinophils % 2.8 %; Hematocrit 36.8 % (36-47); Lymphocytes # 1.1 10^3/uL (0.8-4.8); Lymphocytes % 18.7 %; Mean Corpuscular Hemoglobin 19.8 pg (27-33); Mean Corpuscular Volume 70.8 fl (85-98); Mean Platelet Volume 9.4 fL (7.4-10.4); Monocytes # 0.8 10^3/uL (0.2-0.9); Monocytes % 13.5 %; Neutrophils # 3.68 10^3/uL (1.8-7.7); Neutrophils % 63.8 %; Nucleated Red Blood Cells % 0 %; Platelet Count 253 10^3/cmm (157-399); White Blood Count 5.77 10^3/uL (3.29-11.43)
[2024-01-30 13:15] LABS: Anion Gap 13.3 (5-19); Blood Urea Nitrogen 25 mg/dL (8-23); Calcium 9.1 mg/dL (8.5-10.5); Carbon Dioxide 30 mmol/L (22-29); Chloride 100 mmol/L (98-107); Glucose 86 mg/dL (65-115); Osmolality Calculated 290 mOsm/kg (285-295); Potassium 5.3 mmol/L (3.5-5.1); Sodium 138 mmol/L (136-145)
[2024-01-30 13:17] LABS: INR 1.11 (0.83-1.21); Prothrombin Time (Patient) 14.6 Seconds (12.0-15.1)
== END 2024-01-30 12:04 | disposition home or self-care (01) ==
LOC: LAB 12:06
PROVIDERS: PCP Family Medicine; Visit Provider Internal Medicine
DX: I35.0 Nonrheumatic aortic (valve) stenosis (principal); R58 Hemorrhage, not elsewhere classified
CPT/HCPCS: 36415; 80048; 85025; 85610

== ENCOUNTER 2024-01-31 08:42 | Outpatient (CLI) | payer MEDICARE, OTHER, SELFPAY ==
--- NOTE | 2024-01-31 09:00 | XACV_ITS ---
Exam Room: 2 Ht: 163 cm Wt: 94 kg BSA: 2.10 m2 Gender: Female : 1935 Any Known Allergies: Penicillins Exam Priority: Routine Procedure(s): Procedure Description: Diagnostic procedure Procedure Description: Left Heart Catheterization Procedure Description: Right Heart Catheterization Procedure Description: O2 saturation Procedure Description: Coronary Angiography Diagnostic Cath Status: Elective Diagnostic Findings * No significant disease noted in the Left Main, Left Anterior Descending, Right, or Circumflex coronary arteries. Patent prior stents.. * Patent prior stents in the LAD. * Right heart cath demonstrated severely elevated right and left-sided cardiac pressures. Severe pre and post capillary pulmonary hypertension. On valve study aortic valve area is found to be 0.44 cm2. Mean gradient of 49 mmHg.. * Coronary angiography shows right dominance. Conclusions 1. No significant disease noted in the Left Main, Left Anterior Descending, Right, or Circumflex coronary arteries. Patent prior stents.. 2. Severe aortic stenosis with aortic valve area of 0.44 cm2 and mean gradient of 49 mmHg. 3. Severely elevated right and left-sided cardiac pressures. 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 Recommendations * Patient already undergoing workup for TAVR. * We will uptitrate diuretic therapy as outpatient. * Close follow up with cardiology in 1 week. Interventional RX Recommendation: PCI w/o planned CABG Diagnostic RX Recommendation: PCI w/o planned CABG Anticoagulation: Heparin Pressures Phase:Rest AO : 109 / 81 ( 94 ) @ 11:50:00 AM 108 / 79 ( 93 ) @ 11:51:00 AM 111 / 79 ( 92 ) @ 12:06:00 PM 113 / 77 ( 93 ) @ 12:06:00 PM LV : 176 / 7 / 25 @ 12:06:00 PM 180 / 7 / 30 @ 12:06:00 PM RV : 76 / 4 / 19 @ 11:38:00 AM PA : 71 / 31 ( 49 ) @ 11:37:00 AM RA : a wave = 20 v wave = 21 mean = 18 @ 11:39:00 AM PCW : a wave = 34 v wave = 45 mean = 34 @ 11:36:00 AM O2 Content Phase:Rest PA : O2 Content O2: 52.7 @ 11:50:00 AM Saturations Phase:Rest AO : 97 @ 11:51:00 AM PA : 53 @ 11:50:00 AM Cardiac Output Phase:Rest Oneil : 3 @ 11:17:00 AM Oneil Cardiac Index: 2 @ 11:17:00 AM Flow Phase:Rest Qp : 3 @ 11:17:00 AM Qs : 3 @ 11:17:00 AM Valves Phase:DefaultPhase AV : 67.0 @ 11:17:00 AM 67.0 @ 11:17:00 AM AV Mean Gradient: 49.0 @ 11:17:00 AM 49.0 @ 11:17:00 AM AV Flow: 135 @ 11:17:00 AM AV Area: 0.4 @ 11:17:00 AM AV Area Index: 0.22 @ 11:17:00 AM Clinical Evaluation EBL: 5mL-10mL Procedural Details Pre-Procedure Time Out. Identified patient by full name and date of as verbalized by the patient/guarantor. Does the consent match the physician's order: Yes. Accurate & Complete Informed Consent: Yes. Inpatient/Outpatient History & Physical on Chart: Yes. If H&P is completed, is and addenduem needed: No; If yes, is the addendum complete: N/A. Visualize and Verify Site with Patient/Guarantor: N/A. Relevant Radiology Images available: Yes. Pre-op teaching completed and patient verbalized understanding. The risks, benefits, and alternatives of sedation and/or procedure were discussed by physician. The patient agrees to continue. Procedure started. Physician arrived. [facility] Clinical Fraility Score: 5: Mildly Frail. Marketing Underwriter Indications: Other. Chest Pain Symptom Assessment: Non-anginal Chest Pain. Correct patient, site and procedure confirmed by cath team. PERRLA. 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 Lungs clear x 5 lobes. IV Site on Arrival: 18 gauge in the right anticubital. IV Site on Arrival: 18 gauge in the left anticubital. IV Fluids: 0.9% NaCl at KVO. 0 mL infused prior to supervisor cytogenetic laboratory. Pre Procedural Pulses: right radial was 1+. Oxygen started at 2liters/min via nasal canula. right radial was prepped with chloroprep then draped in the usual sterile fashion. right brachial was prepped with chloroprep then draped in the usual sterile fashion. Baseline sample Acquired. HR: 79 BPM. Physician scrubbed in. Immediate Pre-Procedure Time Out. Correct Patient: Yes; Correct Procedure: Yes; Correct Site: Yes; Correct Patient Position: Yes; Correct Supplies: Yes; Dried Flammable Prep: Yes; Blood Products Available: N/A;. Lidocaine 1% infiltrated to the right brachial. Sheath wire inserted through the brachial IV catheter. IV catheter out OTW. Saint Jo-Omega MON catheter inserted. 0.025 wire inserted through the Saint Jo catheter. Wire out. Oximetry samples were obtained. Normal venous range: 60-85%. Normal arterial range: 95-100%. Pressure measurements obtained. Saint Jo-Omega out. Lidocaine 1% infiltrated to the right radial. Arterial access obtained. ABG drawn and sent with respiratory therapy. A 5 malay TIG catheter in over wire. Multiple views taken of left coronary artery. Catheter redirected to the RCA. Multiple views taken of right coronary artery. Catheter removed over the exchange wire. A 5 malay AL1 catheter in over wire. Wire out. Glidewire inserted. Wire out. Glidewire reinserted. Wire out. Exchange wire inserted. Catheter out OTW. Darin catheter inserted OTW. Gradient taken: LV 180/7,30; AO 113/77(93); Mean: 49mmHg, Peak to Peak: 67mmHg, SEP: 22sec/min; HR: 84 BPM; SpO2: 95%. Catheter removed over the exchange wire. Physician scrubbed out. A TR Band was successful obtaining hemostatsis at the Right Radial artery insertion site. A Manual Compression was successful obtaining hemostatsis at the Right Brachial Vein insertion site. Post Procedure: Pulses reassessed and unchanged. PERRLA. 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 No VTE prophylaxis required. Medication's Wasted: Nitro = 49.8 mg. Medication's Wasted: Heparin = 1000 units. Total IV fluids: 30 mL. Complications: None. Estimated blood loss: 5mL-10mL. Responsiveness - Normal response to verbal stimuli; alert and oriented, PERRLA. Airway - Unaffected, no intervention required; spontaneous ventilation. Circulation: W/N/L, pulses unchanged. Nausea/Vomiting: No. Procedure completed. Patient transferred by stretcher to CPRU. Vital chart was stopped. Access Site Site: Right Brachial Vein Sheath Size: 6 Fr Hemostasis Method: Manual Compression Hemostasis Success: Successful Site: Right Radial artery Sheath Size: 6 Fr Hemostasis Method: TR Band Hemostasis Success: Successful Procedure Medications Start: 10:19 AM Stop: 10:19 AM Medication: Versed Amount: 1 mg Start: 10:44 AM Stop: 10:44 AM Medication: Nitrogylcerin Amount: 200 mcg Route: I.A. Start: 10:49 AM Stop: 10:49 AM Medication: Heparin Amount: 5000 units Route: I.V. Start: 10:49 AM Stop: 10:49 AM Medication: Versed Amount: 1 mg I, the attending physician, have reviewed and verified all procedure medications. Yes, all medications given per verbal order History/Risk Factors Hypertension: Yes Dyslipidemia: No Peripheral Arterial Disease (PAD): No Myocardial Infarction (IA): Yes Obesity: Yes Renal Disease: No Tobacco Use: Never Prior Interventions PCI: Yes CABG: No Valve Surgery: No Date of PCI: 03/07/2017 Report Signatures Finalized by Julius Saab MD on 02/02/2024 10:11 AM
[2024-01-31] MEDS: diphenhydrAMINE 50 mg Capsule PO (09:44)
[2024-01-31 09:46] VITALS: BP 104/65; PULSE 88; RESP 20; O2SAT 96; BMI 35.5
--- NOTE | 2024-01-31 10:20 | W.PM.OPSFHP ---
Same Day Surgery H&P Indication for Procedure/HPI DATE OF PROCEDURE: January 31, 2024 CHIEF COMPLAINT/INDICATIONFOR SURGICAL PROCEDURE: Aortic stenosis PREOP DIAGNOSIS: Aortic stenosis PLANNED PROCEDURE: Operation Date: 01/31/24 07:00 Proposed Procedures p Cardiac Catheterization(Bilateral) - Julius Saab M.D Operation Date: 01/31/24 10:00 Proposed Procedures p Cardiac Catheterization(Not Applicable) - Julius Saab M.D 88-year-old woman with a worsening shortness of breath. She has valvular heart disease. Is undergoing planning for TAVR. Right and left heart cath today as part of valve replacement workup. Medications/Allergies* Home Medications Medication Instructions Recorded Confirmed Type cholecalciferol (vitamin D3) 10 400 unit PO DAILY 10/10/20 01/31/24 History mcg (400 unit) capsule citalopram 10 mg tablet 10 mg PO DAILY 10/10/20 01/31/24 History garlic 1,000 mg capsule 1,000 mg PO DAILY 10/10/20 01/31/24 History krill bld-sfaod-0-dha-epa 300 1 cap PO DAILY 10/10/20 01/31/24 History mg-90 mg (27 mg-45 mg) capsule magnesium oxide 500 mg capsule 500 mg PO DAILY 10/10/20 01/31/24 History red yeast rice 600 mg capsule 600 mg PO DAILY 10/10/20 01/31/24 History zinc 50 mg tablet 50 mg PO DAILY 10/10/20 01/31/24 History fluticasone propionate 50 1 spray intranasal DAILY 05/09/21 01/31/24 History mcg/actuation nasal spray,suspension (Flonase Allergy Relief) diltiazem HCl 180 mg 120 mg PO QAM 06/07/22 01/31/24 History capsule,extended release 24 hr aspirin 81 mg tablet,delayed 81 mg PO DAILY 07/12/22 01/31/24 History release (Adult Aspirin Regimen) turmeric 100 mg-mervat 150 cap PO 07/27/22 01/15/24 History mg-olive 50 mg-oreg 150 mg-capryl capsule digoxin 125 mcg (0.125 mg) tablet 125 mcg PO .3 times weekly 01/15/24 01/31/24 History Allergies/Adverse Reactions Allergy/AdvReac Type Severity Reaction Status Date / Time Penicillins Allergy Unknown Verified 01/15/24 13:06 Pertinent History/Comorbid Conditions* Medical History (Updated 01/15/24 @ 13:46 by Hemanth Jaeger MD) History of nonmelanoma skin cancer History of malignant melanoma Atrial fibrillation NSTEMI (non-ST elevated myocardial infarction) TIA (transient ischemic attack) Transient vision disturbance Arm paresthesia, right Acute non-ST elevation myocardial infarction (NSTEMI) Obesity hypoventilation syndrome Chronic hypercapnic respiratory failure Restrictive lung disease GERD (gastroesophageal reflux disease) SOB (shortness of breath) Aortic stenosis, mild Varicose veins of leg with pain Positive cardiac stress test Cellulitis Venous (peripheral) insufficiency Essential (primary) hypertension Diastolic heart failure Well compensated continue medicine. Afib Mild tricuspid valve regurgitation ASHD (arteriosclerotic heart disease) COPD (chronic obstructive pulmonary disease) Respiratory failure with hypercapnia Respiratory failure with hypoxia Surgical History (Updated 11/17/19 @ 14:41 by Moises Hummel MD) H/O hernia repair History of PTCA Stented coronary artery History of appendectomy History of cholecystectomy Family History (Updated 11/16/19 @ 15:46 by Makenzie Schulte LPN) Diabetes Cancer Social History Smoking and tobacco/nicotine status: never used tobacco/nicotine Second hand smoke exposure: No Alcohol intake: never Substance/Drug Use: never Lives independently: Yes Household members: none Marital status: / Current occupational status: retired Do you think of yourself as: Straight/Heterosexual Current gender identity: Female Pertinent Exam Findings alert, oriented x 3, clear to auscultation bilaterally and regular rate & rhythm Grade 3/6 systolic murmur Conscious Sedation Assessment PATIENT ASSESSED PRIOR TO SEDATION, WITH NO CHANGE NOTED: Yes AIRWAY EVAL/ANESTHESIA PLAN: normal airway, ASA III, Local Anesthesia, Risks, benefits & alternatives of sedation and/or procedure discussed and Patient agrees to continue as planned Recommendations Surgery/Procedure today (Right heart cath+ left heart cath with possible percutaneous coronary intervention) Coding Level of Care Code Acute Code for Chg Fwd
[2024-01-31 11:08] LABS: Arterial Blood Gas Hematocrit 29.1 % (37-47); Blood Gas Operator Identificat glc; Blood Gas Sample Site Not specified; Blood Gas Sample Type Not specified; Carboxyhemoglobin 1.5 %THgb (0.4-20.1); HGB O2 Sat 51.7 % (95-100); Methemoglobin 0.4 % (0.4-1.5); Total Hemoglobin 9.5 g/dL (12-16)
[2024-01-31 11:10] LABS: Arterial Blood Gas Hematocrit 29.5 % (37-47); Blood Gas Operator Identificat glc; Blood Gas Sample Site Not specified; Blood Gas Sample Type Not specified; Carboxyhemoglobin 1.4 %THgb (0.4-20.1); HGB O2 Sat 94.9 % (95-100); Methemoglobin 0.4 % (0.4-1.5); Total Hemoglobin 9.6 g/dL (12-16)
--- NOTE | 2024-01-31 11:20 | SUR.PHASEI ---
POST CATH NOTE Recieved patient from optical laboratory technician. Status post cardiac catheterization via the right radial and brachial approach. Vitals and Assessments per flowsheets. Verbal post cath instuctions went over with the patient at this time. She understood well. No pain reported. No IV fluids post cath per MD verbal order. Call light in reach. Informed to call for needs.
[2024-01-31 11:21] VITALS: BP 113/60; PULSE 85; RESP 23; O2SAT 94
[2024-01-31 11:30] VITALS: BP 118/64; PULSE 86; RESP 21; O2SAT 100
[2024-01-31 11:45] VITALS: BP 113/62; PULSE 74; RESP 22; O2SAT 98
--- NOTE | 2024-01-31 12:08 | PC.NURSE ---
Arrived from laboratory miller, AO follows commands. Dr. Graham at bedside plan to D/C today after TR band off
[2024-01-31 12:25] VITALS: BP 114/66; PULSE 76; RESP 30; TEMP 36.6; O2SAT 99
--- NOTE | 2024-01-31 15:02 | PC.NURSE ---
TR band off, site clean dry and intact
--- NOTE | 2024-01-31 15:03 | PC.NURSE ---
all D/C instructions educated, D/C form signed
--- NOTE | 2024-01-31 16:37 | PC.NURSE ---
out of facility transported home by family. IV D/C
== END 2024-01-31 16:20 | disposition home or self-care (01) ==
LOC: CCL 08:43 → CSU 11:56
PROVIDERS: Family Provider Internal Medicine Cardiovascular Disease; PCP Family Medicine; Visit Provider Internal Medicine
DX: I35.0 Nonrheumatic aortic (valve) stenosis (principal); Z85.820 Personal history of malignant melanoma of skin; I48.91 Unspecified atrial fibrillation; I25.2 Old myocardial infarction; Z86.73 Personal history of transient ischemic attack (TIA), and cerebral infarction without residual deficits; K21.9 Gastro-esophageal reflux disease without esophagitis; I11.0 Hypertensive heart disease with heart failure; I50.30 Unspecified diastolic (congestive) heart failure; I25.10 Atherosclerotic heart disease of native coronary artery without angina pectoris; J44.9 Chronic obstructive pulmonary disease, unspecified
CPT/HCPCS: 36415; 82810; 93460; 96365; 96374; 96375; 99152; 99153; C1751; C1769; C1887; C1894; G0378; J1644; J2250; J3010; J3490; J7030; Q0163; Q9967

== ENCOUNTER 2024-03-17 14:12 | Outpatient (CLI) | payer MEDICARE, OTHER, SELFPAY ==
--- NOTE | 2024-03-17 14:22 | PETR_ITS ---
PROCEDURE INFORMATION: Exam: PET/CT Skull Base to Mid-thigh Exam date and time: 03/17/2024 3:01 PM Age: 88 years old Clinical indication: Symptoms: Solitary pulmonary nodule LABS AND CLINICAL REPORTS: Glucose: 99 mg/dl Treatment strategy for malignancy (PET staging): Initial Staging (PI) TECHNIQUE: Imaging protocol: Following at least four-hour fasting and following the injection of radiopharmaceutical, low dose CT images were obtained. Then, PET images were obtained. Attenuation corrected images were constructed using the CT scan. Fused images of PET and CT were reviewed. The standardized uptake values (SUV) reported below are maximum values within a region of interest, expressed in gm/ml. Exam includes orbital meatal line to mid-thigh. Radiopharmaceutical: 13.24 mCi F-18 FDG (Fluorodeoxyglucose), IV. Time of imaging post radiopharmaceutical administration: 1 hour Injection site: left hand COMPARISON: CT abdomen pelvis w con* [id number] 12/10/2017 9:42 AM FINDINGS: Limitations: The examination is technically suboptimal secondary to the scan to injection time outside of recommended parameters (45-75 minutes). Reported scan to injection time of 41 minutes. Injection to scan times outside of recommended parameters can result in decreased PET sensitivity and limit the utility of comparison of SUV values to prior or subsequent exams. Brain: Visualized brain has normal physiologic uptake. Pharynx: No abnormal uptake. Larynx: No abnormal uptake. Lungs, pleura and trachea: A few bilateral pulmonary nodules are seen. An 8 mm right middle lobe pulmonary nodule is seen on image 86. A 1.5 x 1.0 cm left upper lobe nodule is seen on image 63. A 1.4 cm left lower lobe nodule is seen on image 101. These do not demonstrate increased FDG uptake above background. Heart: Coarse mitral annulus calcifications. Mediastinal space: No abnormal uptake. Liver: No abnormal uptake. Gallbladder and bile ducts: Cholecystectomy. Pancreas: No abnormal uptake. Spleen: No abnormal uptake. Adrenal glands: No abnormal uptake. Kidneys and ureters: Right renal cyst. Stomach and bowel: Colonic diverticulosis. Vasculature: No abnormal uptake. Lymph nodes: No abnormal uptake. No lymphadenopathy in the head, neck, chest, abdomen, pelvis, and extremities. Skeleton: No abnormal uptake in the visualized axial and appendicular skeleton. Soft tissues: Mild FDG uptake is seen associated with a rounded soft tissue density in the subcutaneous fat overlying the posterolateral left hip region with SUV max 1.6. This is favored to be inflammatory. PET/PET skulltothigh INITIAL [id number] IMPRESSION: 1. Bilateral pulmonary nodules are seen without increased FDG uptake. 2. Mild FDG uptake is seen associated with a rounded soft tissue density in the subcutaneous fat overlying the posterolateral left hip region with SUV max 1.6. This is favored to be inflammatory.
== END 2024-03-17 14:13 | disposition home or self-care (01) ==
PROVIDERS: Family Provider Internal Medicine Cardiovascular Disease; PCP Family Medicine; Visit Provider Family Medicine
DX: R91.8 Other nonspecific abnormal finding of lung field (principal); I34.81 Nonrheumatic mitral (valve) annulus calcification; N28.1 Cyst of kidney, acquired; K57.90 Diverticulosis of intestine, part unspecified, without perforation or abscess without bleeding; Z90.49 Acquired absence of other specified parts of digestive tract
CPT/HCPCS: 78815; A9552

== ENCOUNTER → 2024-05-22 11:26 | Outpatient (BNVA) | payer MEDICARE, SELFPAY | PROVIDERS: Family Provider Internal Medicine Cardiovascular Disease; PCP Family Medicine; Visit Provider Internal Medicine Critical Care Medicine | DX: J96.11 Chronic respiratory failure with hypoxia (principal); J96.12 Chronic respiratory failure with hypercapnia; E66.2 Morbid (severe) obesity with alveolar hypoventilation; J98.4 Other disorders of lung; R53.81 Other malaise; Z68.35 Body mass index [BMI] 35.0-35.9, adult | CPT/HCPCS: 99214 ==

== ENCOUNTER 2024-06-03 14:45 | Outpatient (CLI) | payer MEDICARE, SELFPAY ==
--- NOTE | 2024-06-03 14:16 | USCV_ITS ---
Mansi Ovalles Age: 89 Gender: F : 1935 Exam Date: 06/03/2024 14:58 Ordering Phys: Chung Curry MD Technologist: CT Exam Location: [facility] [place] Indication: avr april 2024 BP: 124 / 68 HR: 86 Rhythm: Sinus Technical Quality: Adequate MEASUREMENTS (Male / Female) Normal Values 2D ECHO LVOT Diameter 2.0 cm LV Ejection Fraction MOD 4C 69.1 % LV Ejection Fraction MOD 2C 56.7 % LV Ejection Fraction 2C AL 58.1 % LA Diameter 5.9 cm RA Systolic Volume 4C AL 107.8 ml RA Systolic Volume 4C MOD 107.4 ml LA Sys Volume AL 185.7 cm cubed LA Sys Volume Index AL 88.9 cm cubed/m squared IVC Diameter 2.1 cm DOPPLER AV Peak Velocity 121.0 cm/s LVOT Peak Velocity 114.0 cm/s AV Area Cont Eq vti 2.7 cm squared AV Area Cont Eq pk 3.0 cm squared MV Peak Velocity 194.0 cm/s MV Area PHT 3.5 cm squared Mitral E to A Ratio 2.9 TV Peak Velocity 372.5 cm/s TR Peak Velocity 411.0 cm/s TR Peak Gradient 67.6 mmHg TR Mean Velocity 272.0 cm/s TR Mean Gradient 35.1 mmHg TR Velocity Time Integral 128.1 cm TV Peak E Velocity 89.0 cm/s Right Atrial Pressure 3.0 mmHg Pulmonary Artery Systolic Pressu 70.6 mmHg PV Peak Velocity 97.5 cm/s FINDINGS Left Ventricle Left ventricle is normal in size. LV systolic function is normal with EF of 60-65%. No regional wall motion abnormalities are seen. Right Ventricle Normal in size and function Right Atrium Severely dilated Left Atrium Severely dilated Mitral Valve Moderate to severe mitral annular calcification. Moderate to severe mitral regurgitation. Mild mitral stenosis with mean gradient across aortic valve of 6.1mmHg. Aortic Valve Bioprosthetic aortic valve is seen. No significant stenosis or regurgitation. Mean gradient across aortic valve is 4 mmHg Tricuspid Valve Mild tricuspid regurgitation. RVSP is 65-70mmHg. This is consistent with severe pulmonary hypertension Pulmonic Valve Not well visualized Pericardium Normal Aorta Normal in size IVC Appears to be normal CONCLUSIONS LV systolic function is normal with EF of 60-65% Severe biatrial dilation Moderate to severe mitral regurgitation. Mild mitral stenosis. Bioprosthetic aortic valve is seen. No significant gradient across the aortic valve. Mild tricuspid regurgitation Severe pulmonary hypertension Compared to prior echocardiogram from 08/2023, LV systolic has improved slightly and patient now has a bioprosthetic aortic valve. Julius Saab MD (Electronically Signed) Final Date: 16 June 2024 15:43 S
[2024-06-03 14:30] LABS: Basophils % 0.7 %; Eosinophils # 0.1 10^3/uL (0.0-0.8); Eosinophils % 1.9 %; Hematocrit 40.8 % (36-47); Lymphocytes # 1.5 10^3/uL (0.8-4.8); Lymphocytes % 25.9 %; Mean Corpuscular HGB Conc 28.4 g/dL (30-55); Mean Corpuscular Hemoglobin 20.7 pg (27-33); Mean Corpuscular Volume 72.7 fl (85-98); Mean Platelet Volume 9.5 fL (7.4-10.4); Monocytes # 0.8 10^3/uL (0.2-0.9); Monocytes % 12.6 %; Neutrophils # 3.48 10^3/uL (1.8-7.7); Neutrophils % 58.6 %; Nucleated Red Blood Cells % 0 %; Platelet Count 234 10^3/cmm (157-399); Red Blood Count 5.61 10^6/uL (3.85-5.65); Red Cell Distribution Width 19.5 % (12.1-15.1); White Blood Count 5.94 10^3/uL (3.29-11.43)
[2024-06-03 14:43] LABS: INR 1.12 (0.8-1.2)
[2024-06-03 14:46] LABS: Alanine Aminotransferase 10 U/L (0-33); Albumin Level 4.2 g/dL (3.5-5.2); Alkaline Phosphatase 128 U/L (35-105); Aspartate Amino Transferase 16 U/L (0-32); Blood Urea Nitrogen 23 mg/dL (8-23); Calcium 8.6 mg/dL (8.5-10.5); Carbon Dioxide 28 mmol/L (22-29); Chloride 100 mmol/L (98-107); Globulin 2.9 g/dL (1.3-4.6); Glucose 101 mg/dL (65-115); Osmolality Calculated 296 mOsm/kg (285-295); Sodium 141 mmol/L (136-145); Total Bilirubin 0.5 mg/dL (0.15-1.2); Total Protein 7.1 g/dL (6.6-8.7)
== END 2024-06-03 14:46 | disposition home or self-care (01) ==
PROVIDERS: Family Provider Internal Medicine Cardiovascular Disease; PCP Family Medicine; Visit Provider Family Medicine
DX: I48.91 Unspecified atrial fibrillation (principal); I35.0 Nonrheumatic aortic (valve) stenosis; I08.1 Rheumatic disorders of both mitral and tricuspid valves; Z95.2 Presence of prosthetic heart valve
CPT/HCPCS: 36415; 80053; 85025; 85610; 93005; 93306

== ENCOUNTER → 2024-07-08 13:11 | Outpatient (BNVA) | payer MEDICARE, SELFPAY | PROVIDERS: Family Provider Internal Medicine Cardiovascular Disease; PCP Family Medicine; Visit Provider Internal Medicine Cardiovascular Disease | DX: I48.20 Chronic atrial fibrillation, unspecified (principal); I34.0 Nonrheumatic mitral (valve) insufficiency; E66.9 Obesity, unspecified; I35.0 Nonrheumatic aortic (valve) stenosis; I25.10 Atherosclerotic heart disease of native coronary artery without angina pectoris; I50.32 Chronic diastolic (congestive) heart failure; Z68.35 Body mass index [BMI] 35.0-35.9, adult | CPT/HCPCS: 99213 ==

== ENCOUNTER → 2024-08-13 14:36 | Outpatient (BNVA) | payer MEDICARE, OTHER, SELFPAY | PROVIDERS: Family Provider Internal Medicine Cardiovascular Disease; PCP Family Medicine; Visit Provider Dermatology | DX: D48.5 Neoplasm of uncertain behavior of skin (principal); L72.0 Epidermal cyst; L82.1 Other seborrheic keratosis; L91.8 Other hypertrophic disorders of the skin; L98.8 Other specified disorders of the skin and subcutaneous tissue; L57.0 Actinic keratosis; Z86.006 Personal history of melanoma in-situ; Z85.828 Personal history of other malignant neoplasm of skin | CPT/HCPCS: 11102; 17000; 99213 ==

== ENCOUNTER → 2025-01-05 13:44 | Outpatient (BNVA) | payer MEDICARE, OTHER, SELFPAY | PROVIDERS: Family Provider Internal Medicine Cardiovascular Disease; PCP Family Medicine; Visit Provider Internal Medicine Cardiovascular Disease | DX: I11.0 Hypertensive heart disease with heart failure (principal); I50.32 Chronic diastolic (congestive) heart failure; D50.8 Other iron deficiency anemias; I48.20 Chronic atrial fibrillation, unspecified; Z79.01 Long term (current) use of anticoagulants | CPT/HCPCS: 99214 ==

== ENCOUNTER → 2025-02-01 13:18 | Outpatient (BNVA) | payer MEDICARE, OTHER, SELFPAY | PROVIDERS: Family Provider Internal Medicine Cardiovascular Disease; PCP Family Medicine; Visit Provider Podiatrist Foot & Ankle Surgery | DX: I73.9 Peripheral vascular disease, unspecified (principal); L60.3 Nail dystrophy; D50.8 Other iron deficiency anemias | CPT/HCPCS: 11721; 99204 ==

== ENCOUNTER → 2025-02-11 14:17 | Outpatient (BNVA) | payer MEDICARE, OTHER, SELFPAY | PROVIDERS: Family Provider Internal Medicine Cardiovascular Disease; PCP Family Medicine; Visit Provider Dermatology | DX: L82.1 Other seborrheic keratosis (principal); L72.0 Epidermal cyst; L85.3 Xerosis cutis; Z85.828 Personal history of other malignant neoplasm of skin; Z08 Encounter for follow-up examination after completed treatment for malignant neoplasm | CPT/HCPCS: 11102; 17000; 99213 ==

== ENCOUNTER → 2025-04-15 15:02 | Outpatient (BNVA) | payer MEDICARE, OTHER, SELFPAY | PROVIDERS: Family Provider Internal Medicine Cardiovascular Disease; PCP Family Medicine; Visit Provider Dermatology | DX: L82.1 Other seborrheic keratosis (principal); D18.01 Hemangioma of skin and subcutaneous tissue; Z85.828 Personal history of other malignant neoplasm of skin; Z08 Encounter for follow-up examination after completed treatment for malignant neoplasm; Z86.006 Personal history of melanoma in-situ; D48.5 Neoplasm of uncertain behavior of skin; L57.0 Actinic keratosis | CPT/HCPCS: 11102; 17000; 99213 ==

== ENCOUNTER → 2025-05-03 11:15 | Outpatient (BNVA) | payer MEDICARE, OTHER, SELFPAY | PROVIDERS: Family Provider Internal Medicine Cardiovascular Disease; PCP Family Medicine; Visit Provider Podiatrist Foot & Ankle Surgery | DX: I73.9 Peripheral vascular disease, unspecified (principal); L60.8 Other nail disorders; L60.3 Nail dystrophy; D50.8 Other iron deficiency anemias | CPT/HCPCS: 11721 ==

== ENCOUNTER → 2025-05-13 09:51 | Outpatient (BNVA) | payer MEDICARE, OTHER, SELFPAY | PROVIDERS: Family Provider Internal Medicine Cardiovascular Disease; PCP Family Medicine; Visit Provider Dermatology | DX: C44.42 Squamous cell carcinoma of skin of scalp and neck (principal) | CPT/HCPCS: 13121; 17311 ==

== ENCOUNTER → 2025-07-06 14:57 | Outpatient (BNVA) | payer MEDICARE, OTHER, SELFPAY | PROVIDERS: Family Provider Internal Medicine Cardiovascular Disease; PCP Family Medicine; Visit Provider Internal Medicine Cardiovascular Disease | DX: I11.0 Hypertensive heart disease with heart failure (principal); I50.33 Acute on chronic diastolic (congestive) heart failure; I48.20 Chronic atrial fibrillation, unspecified; Z79.01 Long term (current) use of anticoagulants; Z79.82 Long term (current) use of aspirin; I07.1 Rheumatic tricuspid insufficiency; I27.20 Pulmonary hypertension, unspecified; G47.30 Sleep apnea, unspecified; S80.00XA Contusion of unspecified knee, initial encounter; S59.909A Unspecified injury of unspecified elbow, initial encounter; W19.XXXA Unspecified fall, initial encounter | CPT/HCPCS: 99214 ==

== ENCOUNTER → 2025-07-28 13:02 | Outpatient (BNVA) | payer MEDICARE, OTHER, SELFPAY | PROVIDERS: PCP Family Medicine; Visit Provider Physician Assistant | DX: S52.501A Unspecified fracture of the lower end of right radius, initial encounter for closed fracture (principal); S52.614A Nondisplaced fracture of right ulna styloid process, initial encounter for closed fracture; W19.XXXA Unspecified fall, initial encounter | CPT/HCPCS: 73110 ==

== ENCOUNTER 2025-07-28 14:10 | Outpatient (CLI) | payer MEDICARE, OTHER, SELFPAY | END 2025-07-28 14:11 | disposition home or self-care (01) | LOC: SPT 14:11 | PROVIDERS: PCP Family Medicine; Visit Provider Physician Assistant | DX: Z46.89 Encounter for fitting and adjustment of other specified devices (principal); S52.591D Other fractures of lower end of right radius, subsequent encounter for closed fracture with routine healing; X58.XXXD Exposure to other specified factors, subsequent encounter | CPT/HCPCS: L3982 ==

== ENCOUNTER → 2025-08-04 14:05 | Outpatient (BNVA) | payer MEDICARE, OTHER, SELFPAY | PROVIDERS: PCP Family Medicine; Visit Provider Physician Assistant | DX: S52.501D Unspecified fracture of the lower end of right radius, subsequent encounter for closed fracture with routine healing (principal); X58.XXXD Exposure to other specified factors, subsequent encounter | CPT/HCPCS: 73110; 99024; 99213 ==

== ENCOUNTER → 2025-08-10 10:48 | Outpatient (BNVA) | payer MEDICARE, OTHER, SELFPAY | PROVIDERS: PCP Family Medicine; Visit Provider Physician Assistant | DX: S52.501D Unspecified fracture of the lower end of right radius, subsequent encounter for closed fracture with routine healing (principal); X58.XXXD Exposure to other specified factors, subsequent encounter | CPT/HCPCS: 73110; 99213 ==

== ENCOUNTER → 2025-08-24 10:42 | Outpatient (BNVA) | payer MEDICARE, OTHER, SELFPAY | PROVIDERS: PCP Family Medicine; Visit Provider Dermatology | DX: D18.01 Hemangioma of skin and subcutaneous tissue (principal); L91.8 Other hypertrophic disorders of the skin; L98.8 Other specified disorders of the skin and subcutaneous tissue; L82.1 Other seborrheic keratosis; Z86.006 Personal history of melanoma in-situ; Z08 Encounter for follow-up examination after completed treatment for malignant neoplasm; Z85.828 Personal history of other malignant neoplasm of skin; L82.0 Inflamed seborrheic keratosis; L53.8 Other specified erythematous conditions; L29.89 Other pruritus; L57.0 Actinic keratosis | CPT/HCPCS: 17000; 17110; 99213 ==

== ENCOUNTER → 2025-09-07 10:25 | Outpatient (BNVA) | payer MEDICARE, OTHER, SELFPAY | PROVIDERS: PCP Family Medicine; Visit Provider Physician Assistant | DX: S52.501D Unspecified fracture of the lower end of right radius, subsequent encounter for closed fracture with routine healing (principal); X58.XXXD Exposure to other specified factors, subsequent encounter; E11.8 Type 2 diabetes mellitus with unspecified complications; L60.3 Nail dystrophy; S52.591D Other fractures of lower end of right radius, subsequent encounter for closed fracture with routine healing; Z46.89 Encounter for fitting and adjustment of other specified devices; L60.8 Other nail disorders; D50.8 Other iron deficiency anemias; I73.9 Peripheral vascular disease, unspecified | CPT/HCPCS: 73110 ==

== ENCOUNTER 2025-09-07 14:45 | Outpatient (CLI) | payer MEDICARE, OTHER, SELFPAY | END 2025-09-07 14:46 | disposition home or self-care (01) | LOC: SPT 14:46 | PROVIDERS: PCP Family Medicine; Visit Provider Physician Assistant | DX: Z46.89 Encounter for fitting and adjustment of other specified devices (principal); S52.591D Other fractures of lower end of right radius, subsequent encounter for closed fracture with routine healing; X58.XXXD Exposure to other specified factors, subsequent encounter | CPT/HCPCS: L3908 ==

== ENCOUNTER → 2025-09-20 11:43 | Outpatient (BNVA) | payer MEDICARE, OTHER, SELFPAY | PROVIDERS: PCP Family Medicine; Visit Provider Dermatology | DX: L21.8 Other seborrheic dermatitis (principal); L57.0 Actinic keratosis | CPT/HCPCS: 17000; 99214 ==

== ENCOUNTER → 2025-10-06 10:14 | Outpatient (BNVA) | payer MEDICARE, OTHER, SELFPAY | PROVIDERS: PCP Family Medicine; Visit Provider Physician Assistant | DX: J96.11 Chronic respiratory failure with hypoxia (principal); J96.12 Chronic respiratory failure with hypercapnia; Z99.81 Dependence on supplemental oxygen; J98.4 Other disorders of lung; I11.0 Hypertensive heart disease with heart failure; I50.9 Heart failure, unspecified; E66.2 Morbid (severe) obesity with alveolar hypoventilation; Z68.32 Body mass index [BMI] 32.0-32.9, adult; S52.501A Unspecified fracture of the lower end of right radius, initial encounter for closed fracture; X58.XXXA Exposure to other specified factors, initial encounter; I34.89 Other nonrheumatic mitral valve disorders; Z95.2 Presence of prosthetic heart valve; M19.012 Primary osteoarthritis, left shoulder; M19.011 Primary osteoarthritis, right shoulder; M47.814 Spondylosis without myelopathy or radiculopathy, thoracic region | CPT/HCPCS: 71046; 73110; 99214; Q3014 ==